=== PATIENT | male | born 1945 | race African-American/Black ===

== ENCOUNTER 2022-01-29 13:19 | Inpatient (IN) | payer MEDICARE, BC ==
[~2022-01-29] VITALS: Ht 185.4 cm; Wt 89.8 kg
[~2022-01-29 13:19] MED LIST: ALBU6.7H9 INH; COR12 PO; DOCU100T PO; FINA5TAB11 PO; GABA800T97 PO; INSU100C6 SQ; INSU100I28 SQ; LIDO35.421 TP; NORT25CA PO; PANT40TA51 PO; PSYL575P22 MT; ROSU20TA2 PO; SENN-257 PO; SPIR25TA6 PO; TAMS-11 PO; TORS20TA4 PO
[2022-01-29] MEDS ORDERED: VANCOMYCIN 1G PREMIX 200 ML IV ONE ×2 (14:00→15:30)
[2022-01-29] MEDS ORDERED: SODIUM CHLORIDE 0.9% 1000ML BAG (SEPSIS BOLUS) IV ONE (14:00)
[2022-01-29] MEDS ORDERED: PIPERACILLIN/TAZ 3.375G PREMIX 50 ML IV ONE (14:00)
[2022-01-29 14:18] LABS: HEMATOCRIT. 29.2 % (42.0-52.0); HEMOGLOBIN. 9.4 g/dL (14.0-18.0); MEAN CORPUSCULAR VOLUME 89.9 fL (80.0-94.0); MEAN PLATELET VOLUME 7.9 fl (7.4-10.4); PLATELET 313 x1000/uL (130-400); RED BLOOD CELL COUNT 3.24 mill/uL (4.7-6.1); RED CELL DISTRIBUTION WIDTH 17.1 % (11.6-14.6)
[2022-01-29 14:25] LABS: INR 1.3
[2022-01-29] MEDS ORDERED: ACETAMINOPHEN 650MG SUPP PR PRN (14:45)
[2022-01-29] MEDS: DEXT 5%/0.45% NACL 1000ML 1,000 ML IV SCH (14:45)
[2022-01-29] MEDS ORDERED: PIPERACILLIN/TAZOBACTAM 3.375 G in DEXTROSE 5% WATER 50 ML IV SCH (14:45)
[2022-01-29] MEDS ORDERED: NALOXONE HCL 0.4MG/ML VIAL IV PRN (15:00)
[2022-01-29] MEDS ORDERED: VANCOMYCIN 1G PREMIX 200 ML IV NR (15:30)
[2022-01-29] MEDS ORDERED: PIPERACILLIN/TAZ 3.375G PREMIX 50 ML IV NR (15:30)
[2022-01-29 16:19] LABS: CHLORIDE 103 mEq/L (98-107)
[2022-01-29 16:49] LABS: PLATELET ESTIMATE NORMAL
[2022-01-29] MEDS ORDERED: VANCOMYCIN 1500MG in DEXTROSE 5% WATER 250ML IV NR (17:30)
[2022-01-29] MEDS ORDERED: VANCOMYCIN 1.25GM PMX (XELLIA) 250 ML IV NR (17:30)
[2022-01-29] MEDS: ONDANSETRON HCL 4MG/2ML INJ IV PRN (21:46)
[2022-01-29] MEDS: MORPHINE SULFATE 2 MG/ML CPJ (NOT FOR IM USE) IV PRN (21:46)
[2022-01-29] MEDS: PIPERACILLIN/TAZOBACTAM 3.375G in DEXT 5% WATER 50ML IV SCH (22:00)
[2022-01-30] VITALS (9 sets, daily range): BP systolic 107–139; BP diastolic 48–63
[2022-01-30] MEDS: DEXT 5%/0.45% NACL 1000ML 1,000 ML IV SCH ×3 (06:00→23:49)
[2022-01-30] MEDS ORDERED: DEXTROSE 50% WATER 50ML SYRINGE IV PRN (07:45)
[2022-01-30] MEDS: INSULIN LISPRO (MEDIUM DOSE) 100 UNITS/ML SUBCUT SCH ×3 (12:00→23:52)
[2022-01-30] MEDS ORDERED: INSULIN LISPRO 100 UNITS/ML SUBCUT SCH (12:00)
[2022-01-30] MEDS: BLOOD SUGAR DIAGNOSTIC STRIP TEST SCH ×3 (12:00→23:49)
[2022-01-30 12:45] LABS: CHLORIDE 100 mEq/L (98-107)
[2022-01-30 12:47] LABS: HEMATOCRIT. 27.9 % (42.0-52.0); HEMOGLOBIN. 8.8 g/dL (14.0-18.0); MEAN CORPUSCULAR HEMOGLOBIN 28.8 pg (28.0-32.0); MEAN CORPUSCULAR VOLUME 91.3 fL (80.0-94.0); MEAN PLATELET VOLUME 8.2 fl (7.4-10.4); PLATELET 286 x1000/uL (130-400); RED BLOOD CELL COUNT 3.06 mill/uL (4.7-6.1); RED CELL DISTRIBUTION WIDTH 17.9 % (11.6-14.6)
[2022-01-30] MEDS: PIPERACILLIN/TAZOBACTAM 3.375G in DEXT 5% WATER 50ML IV SCH ×2 (15:00→23:20)
[2022-01-30 20:34] LABS: PLATELET ESTIMATE NORMAL
[2022-01-30] MEDS ORDERED: VANCOMYCIN 750MG PREMIX 150 ML IV NR (21:00)
[2022-01-31] VITALS (12 sets, daily range): BP systolic 97–152; BP diastolic 38–91
[2022-01-31] MEDS: PIPERACILLIN/TAZOBACTAM 3.375G in DEXT 5% WATER 50ML IV SCH ×3 (05:50→21:54)
[2022-01-31] MEDS: BLOOD SUGAR DIAGNOSTIC STRIP TEST SCH ×3 (05:51→18:21)
[2022-01-31] MEDS: INSULIN LISPRO (MEDIUM DOSE) 100 UNITS/ML SUBCUT SCH ×3 (05:59→18:30)
[2022-01-31 06:25] LABS: HEMATOCRIT. 29.6 % (42.0-52.0); HEMOGLOBIN. 9.4 g/dL (14.0-18.0); MEAN CORPUSCULAR HEMOGLOBIN 29.2 pg (28.0-32.0); MEAN CORPUSCULAR VOLUME 92.6 fL (80.0-94.0); MEAN PLATELET VOLUME 8.4 fl (7.4-10.4); PLATELET 174 x1000/uL (130-400); RED CELL DISTRIBUTION WIDTH 17.7 % (11.6-14.6)
[2022-01-31 06:45] LABS: CHLORIDE 104 mEq/L (98-107)
[2022-01-31] MEDS ORDERED: SODIUM BICARBONATE 8.4% 1 MEQ/ML 50ML SYR IV NR (10:30)
[2022-01-31 11:17] LABS: PLATELET ESTIMATE NORMAL
[2022-01-31] MEDS ORDERED: SODIUM BICARBONATE 150 MEQ in DEXTROSE 5% WATER 1,000 ML IV SCH (12:00)
[2022-01-31 12:55] LABS: CLARITY URINE CLOUDY (CLEAR); COLOR URINE DARK YELLOW (YELLOW); KETONES URINE TRACE (NEGATIVE); LEUKOCYTE ESTERASE URINE 1+ (NEGATIVE); NITRITE URINE NEGATIVE (NEGATIVE); OCCULT BLOOD URINE NEGATIVE (NEGATIVE); PH URINE 5.5 (4.5-8.0); PROTEIN URINE 2+ (NEGATIVE); SPECIFIC GRAVITY URINE 1.015 (1.005-1.030); UROBILINOGEN URINE 0.2 E.U./dL (0.2-1.0)
[2022-01-31] MEDS: MORPHINE SULFATE 2 MG/ML CPJ (NOT FOR IM USE) IV PRN (18:43)
[2022-02-01] VITALS (12 sets, daily range): BP systolic 106–147; BP diastolic 44–88
[2022-02-01] MEDS: INSULIN LISPRO (MEDIUM DOSE) 100 UNITS/ML SUBCUT SCH ×5 (00:52→17:30)
[2022-02-01] MEDS: BLOOD SUGAR DIAGNOSTIC STRIP TEST SCH ×4 (00:52→16:35)
[2022-02-01 05:30] LABS: CHLORIDE 101 mEq/L (98-107)
[2022-02-01 05:33] LABS: HEMATOCRIT. 27.3 % (42.0-52.0); HEMOGLOBIN. 8.8 g/dL (14.0-18.0); MEAN CORPUSCULAR HEMOGLOBIN 28.5 pg (28.0-32.0); MEAN CORPUSCULAR VOLUME 88.8 fL (80.0-94.0); MEAN PLATELET VOLUME 8.5 fl (7.4-10.4); PLATELET 253 x1000/uL (130-400); RED BLOOD CELL COUNT 3.08 mill/uL (4.7-6.1); RED CELL DISTRIBUTION WIDTH 17.1 % (11.6-14.6)
[2022-02-01] MEDS: PIPERACILLIN/TAZOBACTAM 3.375G in DEXT 5% WATER 50ML IV SCH ×3 (06:09→21:59)
[2022-02-01] MEDS: MORPHINE SULFATE 2 MG/ML CPJ (NOT FOR IM USE) IV PRN (06:39)
[2022-02-01] MEDS: DOCUSATE SODIUM SUGAR FREE 100MG/10ML UDC NG SCH (08:27)
[2022-02-01] MEDS: SODIUM BICARBONATE 150 MEQ in DEXTROSE 5% WATER 1,000 ML IV SCH (08:27)
[2022-02-01 17:00] LABS: PLATELET ESTIMATE NORMAL
[2022-02-01 20:26] LABS: TOTAL IRON BINDING CAPACITY 103 ug/dL (250-450)
[2022-02-01 20:51] LABS: CARCINO EMBRYONIC ANTIGEN 19.4 ng/ml
[2022-02-01 21:11] LABS: FERRITIN 1349 ng/mL (22-322)
[2022-02-01 21:18] LABS: VITAMIN B12 SERUM > 2000.0 pg/mL (211-911)
[2022-02-01] MEDS: PANTOPRAZOLE SODIUM 40 MG/VIAL IV SCH (21:58)
[2022-02-02] VITALS (12 sets, daily range): BP systolic 128–158; BP diastolic 61–84
[2022-02-02] MEDS: INSULIN LISPRO (MEDIUM DOSE) 100 UNITS/ML SUBCUT SCH ×5 (00:30→23:45)
[2022-02-02] MEDS: SODIUM BICARBONATE 150 MEQ in DEXTROSE 5% WATER 1,000 ML IV SCH (00:31)
[2022-02-02] MEDS: BLOOD SUGAR DIAGNOSTIC STRIP TEST SCH ×5 (06:00→23:45)
[2022-02-02] MEDS: PIPERACILLIN/TAZOBACTAM 3.375G in DEXT 5% WATER 50ML IV SCH ×2 (06:02→14:10)
[2022-02-02 06:38] LABS: HEMATOCRIT. 28.4 % (42.0-52.0); HEMOGLOBIN. 9.2 g/dL (14.0-18.0); MEAN CORPUSCULAR HEMOGLOBIN 28.7 pg (28.0-32.0); MEAN CORPUSCULAR VOLUME 88.9 fL (80.0-94.0); MEAN PLATELET VOLUME 8.7 fl (7.4-10.4); PLATELET 242 x1000/uL (130-400); RED BLOOD CELL COUNT 3.19 mill/uL (4.7-6.1); RED CELL DISTRIBUTION WIDTH 16.9 % (11.6-14.6)
[2022-02-02] MEDS: DOCUSATE SODIUM SUGAR FREE 100MG/10ML UDC NG SCH (08:04)
[2022-02-02] MEDS: PANTOPRAZOLE SODIUM 40 MG/VIAL IV SCH (08:04)
[2022-02-02] MEDS: DEXT 5%/0.45% NACL 1000ML 1,000 ML IV SCH ×2 (09:55→21:45)
[2022-02-02 18:16] LABS: INR 1.3; PROTHROMBIN TIME 13.3 sec (9.6-11.0)
[2022-02-02] MEDS: PIPERACILLIN/TAZOBACTAM 3.375 G in DEXTROSE 5% WATER 50 ML IV SCH (21:45)
[2022-02-03] VITALS (11 sets, daily range): BP systolic 126–162; BP diastolic 62–80
[2022-02-03] MEDS: MORPHINE SULFATE 2 MG/ML CPJ (NOT FOR IM USE) IV PRN (00:39)
[2022-02-03 03:35] LABS: INR 1.3; PROTHROMBIN TIME 13.4 sec (9.6-11.0)
[2022-02-03 03:43] LABS: HEMATOCRIT. 26.4 % (42.0-52.0); HEMOGLOBIN. 8.6 g/dL (14.0-18.0); MEAN CORPUSCULAR HEMOGLOBIN 28.6 pg (28.0-32.0); MEAN CORPUSCULAR VOLUME 88.3 fL (80.0-94.0); MEAN PLATELET VOLUME 8.6 fl (7.4-10.4); PLATELET 214 x1000/uL (130-400); RED BLOOD CELL COUNT 2.99 mill/uL (4.7-6.1); RED CELL DISTRIBUTION WIDTH 17.2 % (11.6-14.6)
[2022-02-03] MEDS: INSULIN LISPRO (MEDIUM DOSE) 100 UNITS/ML SUBCUT SCH ×4 (05:45→22:41)
[2022-02-03] MEDS: BLOOD SUGAR DIAGNOSTIC STRIP TEST SCH ×4 (05:45→22:32)
[2022-02-03] MEDS: DOCUSATE SODIUM SUGAR FREE 100MG/10ML UDC NG SCH (07:12)
[2022-02-03] MEDS: PIPERACILLIN/TAZOBACTAM 3.375 G in DEXTROSE 5% WATER 50 ML IV SCH ×2 (08:17→22:26)
[2022-02-03] MEDS: PANTOPRAZOLE SODIUM 40 MG/VIAL IV SCH (08:17)
[2022-02-03] MEDS ORDERED: POTASSIUM CHLORIDE INJ 40 MEQ in DEXT 5% WATER 250 ML IV ONE (09:30)
[2022-02-03] MEDS: KCL 20MEQ/100ML X 2 FOR TOTAL KCL 40MEQ/200ML IV SCH ×2 (09:48→11:47)
[2022-02-03 10:41] LABS: PLATELET ESTIMATE NORMAL
[2022-02-03] MEDS: DEXT 5%/0.45% NACL 1000ML 1,000 ML IV SCH (11:58)
[2022-02-03] MEDS ORDERED: LIDOCAINE HCL/PF 1% 10 MG/ML 5ML VIAL ONE ×3 (12:57→16:20)
[2022-02-03] MEDS ORDERED: HEPARIN 1000 UNITS/ML 10ML ONE (13:25)
[2022-02-03] MEDS ORDERED: IOHEXOL-300 50 ML BOTTLE IV ONE (14:52)
[2022-02-03] MEDS ORDERED: MIDAZOLAM HCL 2 MG/2 ML VIAL ONE (15:32)
[2022-02-03] MEDS ORDERED: PHENYLEPHRINE HCL 10 MG/ML 1ML (IV VIAL) IV ONE (16:09)
[2022-02-03 16:19] LABS: PLATELET ESTIMATE NORMAL
[2022-02-03] MEDS ORDERED: HYDROMORPHONE HCL/PF 2MG/ML CPJ IV PRN (16:30)
[2022-02-03] MEDS ORDERED: MEPERIDINE HCL/PF 25MG/ML CPJ IV PRN (16:30)
[2022-02-03] MEDS ORDERED: LABETALOL 5MG/ML SYR 20 MG/4 ML SYRINGE IV PRN (16:30)
[2022-02-03] MEDS ORDERED: ONDANSETRON HCL 4MG/2ML INJ IV PRN (16:30)
[2022-02-03 16:31] LABS: HEMATOCRIT 23.6 % (42.0-52.0); MEAN CORPUSCULAR HEMOGLOBIN 29.4 pg (28.0-32.0); MEAN CORPUSCULAR VOLUME 87.2 fL (80.0-94.0); PLATELET 202 x1000/uL (130-400); RED BLOOD CELL COUNT 2.71 mill/uL (4.7-6.1); RED CELL DISTRIBUTION WIDTH 16.7 % (11.6-14.6)
[2022-02-03 21:51] LABS: HEPATITIS B SURFACE ANTIGEN NEGATIVE
[2022-02-04] VITALS (10 sets, daily range): BP systolic 109–148; BP diastolic 54–84
[2022-02-04] MEDS: DEXT 5%/0.45% NACL 1000ML 1,000 ML IV SCH ×2 (01:00→14:20)
[2022-02-04] MEDS: PANTOPRAZOLE SODIUM 40 MG/VIAL IV SCH (09:00)
[2022-02-04] MEDS: PIPERACILLIN/TAZOBACTAM 3.375 G in DEXTROSE 5% WATER 50 ML IV SCH ×2 (09:00→22:15)
[2022-02-04] MEDS: DOCUSATE SODIUM SUGAR FREE 100MG/10ML UDC NG SCH (09:00)
[2022-02-04] MEDS: BLOOD SUGAR DIAGNOSTIC STRIP TEST SCH ×2 (12:03→18:06)
[2022-02-04 12:07] LABS: HEMATOCRIT. 24.6 % (42.0-52.0); HEMOGLOBIN. 8.2 g/dL (14.0-18.0); MEAN CORPUSCULAR HEMOGLOBIN 29.8 pg (28.0-32.0); MEAN CORPUSCULAR VOLUME 89.6 fL (80.0-94.0); MEAN PLATELET VOLUME 8.8 fl (7.4-10.4); PLATELET 195 x1000/uL (130-400); RED BLOOD CELL COUNT 2.74 mill/uL (4.7-6.1); RED CELL DISTRIBUTION WIDTH 17.2 % (11.6-14.6)
[2022-02-04] MEDS: INSULIN LISPRO (MEDIUM DOSE) 100 UNITS/ML SUBCUT SCH ×2 (12:13→18:20)
[2022-02-04 17:41] LABS: PLATELET ESTIMATE NORMAL
[2022-02-05] VITALS (12 sets, daily range): BP systolic 128–154; BP diastolic 54–79
[2022-02-05] MEDS: INSULIN LISPRO (MEDIUM DOSE) 100 UNITS/ML SUBCUT SCH ×4 (00:24→18:28)
[2022-02-05] MEDS: BLOOD SUGAR DIAGNOSTIC STRIP TEST SCH ×4 (00:30→18:23)
[2022-02-05 07:00] LABS: HEMATOCRIT. 22.4 % (42.0-52.0); HEMOGLOBIN. 7.5 g/dL (14.0-18.0); MEAN CORPUSCULAR HEMOGLOBIN 29.7 pg (28.0-32.0); MEAN CORPUSCULAR VOLUME 89.3 fL (80.0-94.0); MEAN PLATELET VOLUME 8.9 fl (7.4-10.4); PLATELET 189 x1000/uL (130-400); RED BLOOD CELL COUNT 2.51 mill/uL (4.7-6.1); RED CELL DISTRIBUTION WIDTH 17.1 % (11.6-14.6)
[2022-02-05] MEDS: PIPERACILLIN/TAZOBACTAM 3.375 G in DEXTROSE 5% WATER 50 ML IV SCH ×2 (08:23→21:31)
[2022-02-05] MEDS: DOCUSATE SODIUM SUGAR FREE 100MG/10ML UDC NG SCH (08:23)
[2022-02-05] MEDS: PANTOPRAZOLE SODIUM 40 MG/VIAL IV SCH (08:23)
[2022-02-05] MEDS: EPOETIN ALFA-EPBX 10,000 UNIT/ML VIAL SUBCUT SCH (21:31)
[2022-02-05] MEDS: ONDANSETRON HCL 4MG/2ML INJ IV PRN (23:18)
[2022-02-06] VITALS (12 sets, daily range): BP systolic 112–166; BP diastolic 50–80
[2022-02-06] MEDS: BLOOD SUGAR DIAGNOSTIC STRIP TEST SCH ×4 (00:15→18:27)
[2022-02-06] MEDS: INSULIN LISPRO (MEDIUM DOSE) 100 UNITS/ML SUBCUT SCH ×4 (00:27→18:26)
[2022-02-06 06:46] LABS: HEMATOCRIT. 24.7 % (42.0-52.0); HEMOGLOBIN. 8.2 g/dL (14.0-18.0); MEAN CORPUSCULAR HEMOGLOBIN 29.7 pg (28.0-32.0); MEAN CORPUSCULAR VOLUME 89.4 fL (80.0-94.0); PLATELET 208 x1000/uL (130-400); RED BLOOD CELL COUNT 2.76 mill/uL (4.7-6.1); RED CELL DISTRIBUTION WIDTH 17.2 % (11.6-14.6)
[2022-02-06] MEDS: PIPERACILLIN/TAZOBACTAM 3.375 G in DEXTROSE 5% WATER 50 ML IV SCH ×2 (08:43→21:35)
[2022-02-06] MEDS: DOCUSATE SODIUM SUGAR FREE 100MG/10ML UDC NG SCH (08:43)
[2022-02-06] MEDS: PANTOPRAZOLE SODIUM 40 MG/VIAL IV SCH (08:43)
[2022-02-06] MEDS ORDERED: POTASSIUM CHLORIDE 20MEQ/PACKET PO NR (10:30)
[2022-02-06 13:22] LABS: PLATELET ESTIMATE NORMAL
[2022-02-06 20:44] LABS: PLATELET ESTIMATE NORMAL
[2022-02-07] VITALS (14 sets, daily range): BP systolic 119–148; BP diastolic 38–75
[2022-02-07] MEDS: BLOOD SUGAR DIAGNOSTIC STRIP TEST SCH ×5 (00:49→23:40)
[2022-02-07] MEDS: INSULIN LISPRO (MEDIUM DOSE) 100 UNITS/ML SUBCUT SCH ×5 (00:52→23:50)
[2022-02-07] MEDS: PANTOPRAZOLE SODIUM 40 MG/VIAL IV SCH (08:28)
[2022-02-07] MEDS: DOCUSATE SODIUM SUGAR FREE 100MG/10ML UDC NG SCH (08:28)
[2022-02-07] MEDS: PIPERACILLIN/TAZOBACTAM 3.375 G in DEXTROSE 5% WATER 50 ML IV SCH ×2 (08:29→20:19)
[2022-02-07 13:20] LABS: HEMATOCRIT. 23.8 % (42.0-52.0); HEMOGLOBIN. 7.8 g/dL (14.0-18.0); MEAN CORPUSCULAR HEMOGLOBIN 29.7 pg (28.0-32.0); MEAN CORPUSCULAR VOLUME 90.4 fL (80.0-94.0); MEAN PLATELET VOLUME 9.1 fl (7.4-10.4); PLATELET 195 x1000/uL (130-400); RED BLOOD CELL COUNT 2.63 mill/uL (4.7-6.1); RED CELL DISTRIBUTION WIDTH 18.1 % (11.6-14.6)
[2022-02-07] MEDS ORDERED: POTASSIUM CHLORIDE 20MEQ/PACKET PO SCH (14:00)
[2022-02-07] MEDS: ACETAMINOPHEN 650MG/20.3ML UDC NG PRN (15:26)
[2022-02-08] VITALS (17 sets, daily range): BP systolic 112–161; BP diastolic 36–78
[2022-02-08] MEDS: BLOOD SUGAR DIAGNOSTIC STRIP TEST SCH ×3 (05:10→18:03)
[2022-02-08] MEDS: INSULIN LISPRO (MEDIUM DOSE) 100 UNITS/ML SUBCUT SCH ×3 (05:16→18:03)
[2022-02-08 07:24] LABS: HEMATOCRIT. 21.5 % (42.0-52.0); MEAN CORPUSCULAR HEMOGLOBIN 29.5 pg (28.0-32.0); MEAN CORPUSCULAR VOLUME 91.1 fL (80.0-94.0); MEAN PLATELET VOLUME 9.3 fl (7.4-10.4); PLATELET 203 x1000/uL (130-400); RED BLOOD CELL COUNT 2.36 mill/uL (4.7-6.1); RED CELL DISTRIBUTION WIDTH 18.1 % (11.6-14.6)
[2022-02-08 14:10] LABS: PLATELET ESTIMATE NORMAL
[2022-02-08] MEDS: PANTOPRAZOLE SODIUM 40 MG/VIAL IV SCH (14:20)
[2022-02-08] MEDS: DOCUSATE SODIUM SUGAR FREE 100MG/10ML UDC NG SCH (14:20)
[2022-02-08] MEDS: ACETAMINOPHEN 650MG/20.3ML UDC NG PRN (14:28)
[2022-02-08] MEDS ORDERED: POTASSIUM CHLORIDE 20MEQ TABLET SR PO NR (15:15)
[2022-02-08] MEDS ORDERED: AMOXICILLIN/POTASSIUM CLAVULANATE 875/125MG TAB PO SCH (21:00)
[2022-02-08] MEDS: AMOXICILLIN/POTASSIUM CLAVULANATE 500/125MG TAB PO SCH (21:36)
[2022-02-08] MEDS: EPOETIN ALFA-EPBX 10,000 UNIT/ML VIAL SUBCUT SCH (21:36)
[2022-02-09] VITALS (12 sets, daily range): BP systolic 134–161; BP diastolic 63–89
[2022-02-09] MEDS: INSULIN LISPRO (MEDIUM DOSE) 100 UNITS/ML SUBCUT SCH (00:13)
[2022-02-09 06:44] LABS: BASOPHILS % 0.3 % (0.0-2.0); EOSINOPHILS % 1.4 % (0.0-5.0); HEMATOCRIT. 27.6 % (42.0-52.0); HEMOGLOBIN. 9.2 g/dL (14.0-18.0); LYMPHOCYTES % 16.2 % (20.0-50.0); MEAN CORPUSCULAR HEMOGLOBIN 30.4 pg (28.0-32.0); MEAN PLATELET VOLUME 9.1 fl (7.4-10.4); MONOCYTES % 7.8 % (2.0-8.0); NEUTROPHILS % 74.3 % (40.0-76.0); PLATELET 199 x1000/uL (130-400); RED BLOOD CELL COUNT 3.03 mill/uL (4.7-6.1); RED CELL DISTRIBUTION WIDTH 17.5 % (11.6-14.6)
[2022-02-09] MEDS: BLOOD SUGAR DIAGNOSTIC STRIP TEST SCH ×5 (08:25→21:00)
[2022-02-09] MEDS ORDERED: POTASSIUM CHLORIDE 20MEQ TABLET SR PO NR (08:45)
[2022-02-09] MEDS: PANTOPRAZOLE SODIUM 40 MG/VIAL IV SCH (08:46)
[2022-02-09] MEDS: AMOXICILLIN/POTASSIUM CLAVULANATE 500/125MG TAB PO SCH ×2 (08:46→21:46)
[2022-02-09] MEDS: DOCUSATE SODIUM SUGAR FREE 100MG/10ML UDC NG SCH (08:46)
[2022-02-09] MEDS: INSULIN LISPRO 100 UNITS/ML SUBCUT SCH ×4 (08:47→21:48)
[2022-02-09] MEDS ORDERED: POTASSIUM CHLORIDE 20MEQ TABLET SR PO ONE (09:00)
[2022-02-09] MEDS: MORPHINE SULFATE 2 MG/ML CPJ (NOT FOR IM USE) IV PRN ×2 (10:42→18:25)
[2022-02-09 14:29] LABS: PLATELET ESTIMATE NORMAL
[2022-02-10] VITALS (13 sets, daily range): BP systolic 138–164; BP diastolic 66–78
[2022-02-10 06:38] LABS: BASOPHILS % 0.6 % (0.0-2.0); EOSINOPHILS % 2.2 % (0.0-5.0); HEMATOCRIT. 28.2 % (42.0-52.0); HEMOGLOBIN. 9.2 g/dL (14.0-18.0); LYMPHOCYTES % 18.5 % (20.0-50.0); MEAN CORPUSCULAR HEMOGLOBIN 30.2 pg (28.0-32.0); MEAN CORPUSCULAR VOLUME 92.7 fL (80.0-94.0); MEAN PLATELET VOLUME 9.2 fl (7.4-10.4); MONOCYTES % 7.1 % (2.0-8.0); NEUTROPHILS % 71.6 % (40.0-76.0); PLATELET 229 x1000/uL (130-400); RED BLOOD CELL COUNT 3.04 mill/uL (4.7-6.1); RED CELL DISTRIBUTION WIDTH 18.7 % (11.6-14.6)
[2022-02-10] MEDS: DOCUSATE SODIUM SUGAR FREE 100MG/10ML UDC NG SCH (08:28)
[2022-02-10] MEDS: INSULIN LISPRO 100 UNITS/ML SUBCUT SCH ×4 (08:28→20:59)
[2022-02-10] MEDS: BLOOD SUGAR DIAGNOSTIC STRIP TEST SCH ×4 (08:28→20:56)
[2022-02-10] MEDS: PANTOPRAZOLE SODIUM 40 MG/VIAL IV SCH (08:28)
[2022-02-10] MEDS: AMOXICILLIN/POTASSIUM CLAVULANATE 500/125MG TAB PO SCH ×2 (08:28→20:56)
[2022-02-10] MEDS: MORPHINE SULFATE 2 MG/ML CPJ (NOT FOR IM USE) IV PRN (18:08)
[2022-02-10] MEDS: EPOETIN ALFA-EPBX 10,000 UNIT/ML VIAL SUBCUT SCH (20:56)
[2022-02-10] MEDS: CLONIDINE 0.1MG TABLET PO PRN (21:01)
[2022-02-11] VITALS (12 sets, daily range): BP systolic 150–167; BP diastolic 61–89
[2022-02-11] MEDS: BLOOD SUGAR DIAGNOSTIC STRIP TEST SCH ×4 (07:36→20:56)
[2022-02-11] MEDS: PANTOPRAZOLE SODIUM 40 MG/VIAL IV SCH (08:20)
[2022-02-11] MEDS: INSULIN LISPRO 100 UNITS/ML SUBCUT SCH ×4 (08:20→21:00)
[2022-02-11] MEDS: DOCUSATE SODIUM SUGAR FREE 100MG/10ML UDC NG SCH (08:21)
[2022-02-11] MEDS: AMOXICILLIN/POTASSIUM CLAVULANATE 500/125MG TAB PO SCH ×2 (08:21→20:57)
[2022-02-11] MEDS: MORPHINE SULFATE 2 MG/ML CPJ (NOT FOR IM USE) IV PRN (14:54)
[2022-02-11] MEDS: CLONIDINE 0.1MG TABLET PO PRN (21:01)
[2022-02-11 21:59] LABS: BASOPHILS % 0.7 % (0.0-2.0); EOSINOPHILS % 1.4 % (0.0-5.0); HEMATOCRIT. 26.6 % (42.0-52.0); HEMOGLOBIN. 8.7 g/dL (14.0-18.0); LYMPHOCYTES % 21.9 % (20.0-50.0); MEAN CORPUSCULAR VOLUME 92.2 fL (80.0-94.0); MEAN PLATELET VOLUME 8.8 fl (7.4-10.4); MONOCYTES % 5.8 % (2.0-8.0); NEUTROPHILS % 70.2 % (40.0-76.0); PLATELET 252 x1000/uL (130-400); RED BLOOD CELL COUNT 2.88 mill/uL (4.7-6.1); RED CELL DISTRIBUTION WIDTH 18.7 % (11.6-14.6)
[2022-02-12] VITALS (13 sets, daily range): BP systolic 135–174; BP diastolic 61–80
[2022-02-12] MEDS: INSULIN LISPRO 100 UNITS/ML SUBCUT SCH ×4 (07:30→20:27)
[2022-02-12] MEDS: BLOOD SUGAR DIAGNOSTIC STRIP TEST SCH ×4 (07:54→20:28)
[2022-02-12] MEDS ORDERED: DIATR MEGLU/DIATRIZOATE SOLN 30ML PO NR (08:15)
[2022-02-12] MEDS: AMOXICILLIN/POTASSIUM CLAVULANATE 500/125MG TAB PO SCH ×2 (08:20→20:27)
[2022-02-12] MEDS: PANTOPRAZOLE SODIUM 40 MG/VIAL IV SCH (08:20)
[2022-02-12] MEDS: DOCUSATE SODIUM SUGAR FREE 100MG/10ML UDC NG SCH (08:20)
[2022-02-12] MEDS: CLONIDINE 0.1MG TABLET PO PRN ×2 (08:27→20:29)
[2022-02-12 10:56] LABS: BASOPHILS % 0.7 % (0.0-2.0); EOSINOPHILS % 1.5 % (0.0-5.0); HEMATOCRIT. 27.9 % (42.0-52.0); HEMOGLOBIN. 8.9 g/dL (14.0-18.0); LYMPHOCYTES % 20.1 % (20.0-50.0); MEAN CORPUSCULAR VOLUME 93.5 fL (80.0-94.0); MONOCYTES % 5.6 % (2.0-8.0); NEUTROPHILS % 72.1 % (40.0-76.0); PLATELET 263 x1000/uL (130-400); RED BLOOD CELL COUNT 2.98 mill/uL (4.7-6.1); RED CELL DISTRIBUTION WIDTH 19.2 % (11.6-14.6)
[2022-02-13] VITALS (12 sets, daily range): BP systolic 140–170; BP diastolic 50–87
[2022-02-13] MEDS: CLONIDINE 0.1MG TABLET PO PRN (04:15)
[2022-02-13] MEDS: BLOOD SUGAR DIAGNOSTIC STRIP TEST SCH ×4 (07:52→21:00)
[2022-02-13] MEDS: INSULIN LISPRO 100 UNITS/ML SUBCUT SCH ×4 (08:45→21:24)
[2022-02-13] MEDS: DOCUSATE SODIUM SUGAR FREE 100MG/10ML UDC NG SCH (08:46)
[2022-02-13] MEDS: AMOXICILLIN/POTASSIUM CLAVULANATE 500/125MG TAB PO SCH ×2 (08:46→21:23)
[2022-02-13] MEDS: PANTOPRAZOLE SODIUM 40 MG/VIAL IV SCH (08:46)
[2022-02-13 09:55] LABS: BASOPHILS % 0.9 % (0.0-2.0); EOSINOPHILS % 1.6 % (0.0-5.0); HEMATOCRIT. 28.2 % (42.0-52.0); HEMOGLOBIN. 9.1 g/dL (14.0-18.0); MEAN CORPUSCULAR HEMOGLOBIN 30.1 pg (28.0-32.0); MEAN CORPUSCULAR VOLUME 93.6 fL (80.0-94.0); MEAN PLATELET VOLUME 8.8 fl (7.4-10.4); MONOCYTES % 5.7 % (2.0-8.0); NEUTROPHILS % 73.8 % (40.0-76.0); PLATELET 276 x1000/uL (130-400); RED BLOOD CELL COUNT 3.01 mill/uL (4.7-6.1); RED CELL DISTRIBUTION WIDTH 19.1 % (11.6-14.6)
[2022-02-13] MEDS ORDERED: POTASSIUM CHLORIDE 20MEQ/PACKET PO NR (10:30)
[2022-02-14] VITALS (12 sets, daily range): BP systolic 142–174; BP diastolic 67–86
[2022-02-14] MEDS: BLOOD SUGAR DIAGNOSTIC STRIP TEST SCH ×4 (08:07→21:38)
[2022-02-14] MEDS: INSULIN LISPRO 100 UNITS/ML SUBCUT SCH ×4 (08:22→21:38)
[2022-02-14] MEDS: DOCUSATE SODIUM SUGAR FREE 100MG/10ML UDC NG SCH (08:23)
[2022-02-14] MEDS: PANTOPRAZOLE SODIUM 40 MG/VIAL IV SCH (08:23)
[2022-02-14] MEDS ORDERED: NALOXONE HCL 0.4MG/ML VIAL IV PRN (15:45)
[2022-02-14] MEDS: MORPHINE SULFATE 2 MG/ML CPJ (NOT FOR IM USE) IV PRN (17:04)
[2022-02-14] MEDS: AMOXICILLIN/POTASSIUM CLAVULANATE 500/125MG TAB PO SCH (21:37)
[2022-02-14] MEDS: CLONIDINE 0.1MG TABLET PO PRN (21:38)
[2022-02-15] VITALS (12 sets, daily range): BP systolic 146–181; BP diastolic 67–91
[2022-02-15] MEDS: CLONIDINE 0.1MG TABLET PO PRN ×3 (05:19→21:28)
[2022-02-15] MEDS: MORPHINE SULFATE 2 MG/ML CPJ (NOT FOR IM USE) IV PRN ×2 (05:21→15:02)
[2022-02-15 06:31] LABS: HEMATOCRIT. 27.7 % (42.0-52.0); MEAN CORPUSCULAR HEMOGLOBIN 30.5 pg (28.0-32.0); MEAN CORPUSCULAR VOLUME 93.7 fL (80.0-94.0); MEAN PLATELET VOLUME 8.5 fl (7.4-10.4); PLATELET 278 x1000/uL (130-400); RED BLOOD CELL COUNT 2.95 mill/uL (4.7-6.1); RED CELL DISTRIBUTION WIDTH 19.7 % (11.6-14.6)
[2022-02-15 06:48] LABS: PHOSPHORUS 4.9 mg/dL (2.5-4.9)
[2022-02-15] MEDS: BLOOD SUGAR DIAGNOSTIC STRIP TEST SCH ×4 (08:01→21:28)
[2022-02-15] MEDS: AMOXICILLIN/POTASSIUM CLAVULANATE 500/125MG TAB PO SCH ×2 (08:49→21:27)
[2022-02-15] MEDS: DOCUSATE SODIUM SUGAR FREE 100MG/10ML UDC NG SCH (08:49)
[2022-02-15] MEDS: PANTOPRAZOLE SODIUM 40 MG/VIAL IV SCH (08:50)
[2022-02-15] MEDS: INSULIN LISPRO 100 UNITS/ML SUBCUT SCH ×4 (08:53→21:28)
[2022-02-15] MEDS ORDERED: POTASSIUM CHLORIDE 20MEQ TABLET SR PO NR (09:00)
[2022-02-15] MEDS: AMLODIPINE 5MG TABLET PO SCH (09:37)
[2022-02-15] MEDS: TAMSULOSIN HCL 0.4MG SR CAPSULE PO SCH (09:38)
[2022-02-15 14:02] LABS: PLATELET ESTIMATE NORMAL
[2022-02-16] VITALS (7 sets, daily range): BP systolic 139–163; BP diastolic 63–82
[2022-02-16] MEDS: HYDRALAZINE 20MG/ML VIAL IV PRN ×2 (05:53→20:55)
[2022-02-16] MEDS: BLOOD SUGAR DIAGNOSTIC STRIP TEST SCH ×4 (07:30→20:56)
[2022-02-16] MEDS: DOCUSATE SODIUM SUGAR FREE 100MG/10ML UDC NG SCH (08:50)
[2022-02-16] MEDS: AMLODIPINE 5MG TABLET PO SCH (08:50)
[2022-02-16] MEDS: INSULIN LISPRO 100 UNITS/ML SUBCUT SCH ×4 (08:51→20:55)
[2022-02-16] MEDS: AMOXICILLIN/POTASSIUM CLAVULANATE 500/125MG TAB PO SCH ×2 (09:00→20:56)
[2022-02-16] MEDS: TAMSULOSIN HCL 0.4MG SR CAPSULE PO SCH (09:00)
[2022-02-16] MEDS: PANTOPRAZOLE SODIUM 40 MG/VIAL IV SCH (09:00)
[2022-02-17] VITALS: BP 153/69
[2022-02-17 02:00] VITALS: BP 174/88
[2022-02-17 04:00] VITALS: BP 149/67
[2022-02-17 05:48] VITALS: BP 156/81
[2022-02-17 07:56] VITALS: BP 164/76
[2022-02-17] MEDS: BLOOD SUGAR DIAGNOSTIC STRIP TEST SCH (08:00)
[2022-02-17] MEDS: DOCUSATE SODIUM SUGAR FREE 100MG/10ML UDC NG SCH (08:12)
[2022-02-17] MEDS: TAMSULOSIN HCL 0.4MG SR CAPSULE PO SCH (08:13)
[2022-02-17] MEDS: HYDRALAZINE 20MG/ML VIAL IV PRN (08:13)
[2022-02-17] MEDS: AMOXICILLIN/POTASSIUM CLAVULANATE 500/125MG TAB PO SCH (08:13)
[2022-02-17] MEDS: PANTOPRAZOLE SODIUM 40 MG/VIAL IV SCH (08:13)
[2022-02-17] MEDS: AMLODIPINE 5MG TABLET PO SCH (08:14)
[2022-02-17] MEDS: INSULIN LISPRO 100 UNITS/ML SUBCUT SCH (08:15)
[2022-02-17 09:44] VITALS: BP 149/66
== END 2022-02-17 10:25 | DRG 919 ==
LOC: ER 13:19 → EDBEDREQTM 16:09 → EDBEDREQ 16:09 → EDBEDREQSVC 16:09 → EDBEDREQ 16:10 → ENRESERV 01-30 01:19 → 5EST 01-30 04:34
PROVIDERS: ADMIT Internal Medicine Nephrology; ATTEND Internal Medicine Nephrology
PROC: 0F9930Z Drainage of Common Bile Duct with Drainage Device, Percutaneous Approach (ICD-10-PCS; principal; 2022-02-03)
PROC: BF10YZZ Fluoroscopy of Bile Ducts using Other Contrast (ICD-10-PCS; 2022-02-03)
PROC: 02HV33Z Insertion of Infusion Device into Superior Vena Cava, Percutaneous Approach (ICD-10-PCS; 2022-02-03)
PROC: B548ZZA Ultrasonography of Superior Vena Cava, Guidance (ICD-10-PCS; 2022-02-03)
PROC: 5A1D70Z Performance of Urinary Filtration, Intermittent, Less than 6 Hours Per Day (ICD-10-PCS; 2022-02-03)
PROC: 5A1D70Z Performance of Urinary Filtration, Intermittent, Less than 6 Hours Per Day (ICD-10-PCS; 2022-02-05)
PROC: 5A1D70Z Performance of Urinary Filtration, Intermittent, Less than 6 Hours Per Day (ICD-10-PCS; 2022-02-08)
PROC: 5A1D70Z Performance of Urinary Filtration, Intermittent, Less than 6 Hours Per Day (ICD-10-PCS; 2022-02-10)
DX: T85.868A Thrombosis due to other internal prosthetic devices, implants and grafts, initial encounter (principal); G92.8 Other toxic encephalopathy; K83.1 Obstruction of bile duct; I21.4 Non-ST elevation (NSTEMI) myocardial infarction; N17.0 Acute kidney failure with tubular necrosis; E87.2 Acidosis; I82.621 Acute embolism and thrombosis of deep veins of right upper extremity; C25.9 Malignant neoplasm of pancreas, unspecified; N18.30 Chronic kidney disease, stage 3 unspecified; E87.5 Hyperkalemia; I12.9 Hypertensive chronic kidney disease with stage 1 through stage 4 chronic kidney disease, or unspecified chronic kidney disease; E11.22 Type 2 diabetes mellitus with diabetic chronic kidney disease; D64.9 Anemia, unspecified; Z20.822 Contact with and (suspected) exposure to COVID-19; E78.00 Pure hypercholesterolemia, unspecified; Z66 Do not resuscitate; E11.51 Type 2 diabetes mellitus with diabetic peripheral angiopathy without gangrene; R19.05 Periumbilic swelling, mass or lump; N40.0 Benign prostatic hyperplasia without lower urinary tract symptoms; E80.6 Other disorders of bilirubin metabolism; R62.7 Adult failure to thrive; E87.6 Hypokalemia; G47.33 Obstructive sleep apnea (adult) (pediatric); I25.10 Atherosclerotic heart disease of native coronary artery without angina pectoris; D72.825 Bandemia; D49.0 Neoplasm of unspecified behavior of digestive system; R97.0 Elevated carcinoembryonic antigen [CEA]; Z86.73 Personal history of transient ischemic attack (TIA), and cerebral infarction without residual deficits; Z79.899 Other long term (current) drug therapy; Z90.49 Acquired absence of other specified parts of digestive tract; Z68.26 Body mass index [BMI] 26.0-26.9, adult; I25.2 Old myocardial infarction; Z74.01 Bed confinement status; Z82.49 Family history of ischemic heart disease and other diseases of the circulatory system; Z85.07 Personal history of malignant neoplasm of pancreas; Z98.84 Bariatric surgery status; Y84.8 Other medical procedures as the cause of abnormal reaction of the patient, or of later complication, without mention of misadventure at the time of the procedure; Y83.8 Other surgical procedures as the cause of abnormal reaction of the patient, or of later complication, without mention of misadventure at the time of the procedure; Y92.89 Other specified places as the place of occurrence of the external cause
CPT/HCPCS: 36415; 36556; 47534; 71045; 74176; 76700; 77001; 80048; 80053; 80076; 80202; 81003; 82105; 82140; 82248; 82270; 82378; 82607; 82728; 82746; 82962; 83540; 83550; 83605; 83735; 83880; 84100; 84145; 84443; 84484; 85025; 85027; 85044; 86301; 86705; 86706; 86709; 86803; 86850; 86900; 86920; 87340; 87426; 92610; 93005; 93306; 93970; 93971; 99291; A6261; C1725; C1752; C1760; C1766; C1769; C9113; C9803; J0360; J0885; J1644; J1815; J2250; J2270; J2370; J2405; J2543; J3370; J3480; J3490; J7030; J7060; J7070; P9016; Q9963; Q9967; U0003; U0005

== ENCOUNTER 2022-03-12 10:40 | Inpatient (IN) | payer MEDICARE, BC, MEDICAID ==
[~2022-03-12] VITALS: Ht 162.6 cm; Wt 73.0 kg
[2022-03-12 11:45] LABS: BASOPHILS % 0.4 % (0.0-2.0); HEMATOCRIT. 40.5 % (42.0-52.0); HEMOGLOBIN. 13.2 g/dL (14.0-18.0); LYMPHOCYTES % 15.5 % (20.0-50.0); MEAN CORPUSCULAR HEMOGLOBIN 29.5 pg (28.0-32.0); MEAN CORPUSCULAR VOLUME 90.5 fL (80.0-94.0); MEAN PLATELET VOLUME 9.4 fl (7.4-10.4); MONOCYTES % 4.5 % (2.0-8.0); NEUTROPHILS % 79.6 % (40.0-76.0); PLATELET 279 x1000/uL (130-400); RED BLOOD CELL COUNT 4.47 mill/uL (4.7-6.1); RED CELL DISTRIBUTION WIDTH 18.5 % (11.6-14.6)
[2022-03-12] MEDS ORDERED: SODIUM CHLORIDE 0.9% 1,000 ML IV ONE (11:45)
[2022-03-12] MEDS ORDERED: MORPHINE SULFATE 2 MG/ML CPJ (NOT FOR IM USE) IV ONE (11:45)
[2022-03-12 11:58] LABS: INR 1.1; PROTHROMBIN TIME 11.7 sec (9.6-11.0)
[2022-03-12 12:08] LABS: CHLORIDE 94 mEq/L (98-107)
[2022-03-12] MEDS ORDERED: CEFTRIAXONE 1 G PREMIX 50 ML IV NR (12:30)
[2022-03-12] MEDS ORDERED: ACETAMINOPHEN 325MG TABLET PO PRN (13:00)
[2022-03-12] MEDS ORDERED: SODIUM BICARBONATE 100 MEQ in DEXTROSE 5% WATER 1,000 ML IV SCH (13:00)
[2022-03-12] MEDS ORDERED: ONDANSETRON HCL 4MG/2ML INJ IV PRN (13:00)
[2022-03-12] MEDS ORDERED: SODIUM BICARBONATE 8.4% 1 MEQ/ML 50ML SYR IV NR (13:00)
[2022-03-12] MEDS ORDERED: CLONIDINE 0.1MG TABLET PO PRN (13:00)
[2022-03-12] MEDS ORDERED: VANCOMYCIN 1G PREMIX 200 ML IV SCH (13:45)
[2022-03-12] MEDS: PIPERACILLIN/TAZOBACTAM 3.375 G in DEXTROSE 5% WATER 50 ML IV SCH (14:00)
[2022-03-12] MEDS: PANTOPRAZOLE SODIUM 40 MG/VIAL IV SCH (14:02)
[2022-03-12 14:07] LABS: TOTAL IRON BINDING CAPACITY 171 ug/dL (250-450)
[2022-03-12 14:39] LABS: FERRITIN 1260 ng/mL (22-322)
[2022-03-12 14:48] LABS: VITAMIN B12 SERUM >2000 pg/mL pg/mL (211-911)
[2022-03-13] VITALS (7 sets, daily range): BP systolic 114–152; BP diastolic 53–81
[2022-03-13] MEDS ORDERED: DEXTROSE 50% WATER 50ML SYRINGE IV PRN (03:30)
[2022-03-13] MEDS: BLOOD SUGAR DIAGNOSTIC STRIP TEST SCH ×3 (06:22→17:13)
[2022-03-13 06:38] LABS: BASOPHILS % 0.2 % (0.0-2.0); EOSINOPHILS % 0.1 % (0.0-5.0); HEMATOCRIT. 37.1 % (42.0-52.0); LYMPHOCYTES % 15.6 % (20.0-50.0); MEAN CORPUSCULAR HEMOGLOBIN 28.9 pg (28.0-32.0); MEAN CORPUSCULAR VOLUME 89.1 fL (80.0-94.0); MONOCYTES % 5.8 % (2.0-8.0); NEUTROPHILS % 78.3 % (40.0-76.0); PLATELET 252 x1000/uL (130-400); RED BLOOD CELL COUNT 4.17 mill/uL (4.7-6.1); RED CELL DISTRIBUTION WIDTH 18.5 % (11.6-14.6)
[2022-03-13 06:50] LABS: CHLORIDE 95 mEq/L (98-107)
[2022-03-13] MEDS ORDERED: INSULIN GLARGINE 100 UNITS/ML SUBCUT SCH ×2 (07:00→21:00)
[2022-03-13] MEDS: INSULIN LISPRO 100 UNITS/ML SUBCUT SCH ×4 (07:11→21:13)
[2022-03-13] MEDS ORDERED: SODIUM BICARBONATE 8.4% 1 MEQ/ML 50ML SYR IV NR (08:45)
[2022-03-13] MEDS: PANTOPRAZOLE SODIUM 40 MG/VIAL IV SCH (09:15)
[2022-03-13] MEDS ORDERED: SODIUM BICARBONATE 100 MEQ in SODIUM CHLORIDE 0.45% 1,000 ML IV SCH (10:00)
[2022-03-13] MEDS: PIPERACILLIN/TAZOBACTAM 3.375 G in DEXTROSE 5% WATER 50 ML IV SCH ×2 (12:13→21:11)
[2022-03-13 16:46] LABS: CLARITY URINE TURBID (CLEAR); COLOR URINE DARK YELLOW (YELLOW); KETONES URINE 1+ (NEGATIVE); LEUKOCYTE ESTERASE URINE 3+ (NEGATIVE); NITRITE URINE NEGATIVE (NEGATIVE); OCCULT BLOOD URINE 3+ (NEGATIVE); PH URINE 5.5 (4.5-8.0); PROTEIN URINE 3+ (NEGATIVE); SPECIFIC GRAVITY URINE 1.019 (1.005-1.030); UROBILINOGEN URINE 0.2 E.U./dL (0.2-1.0)
[2022-03-14] VITALS: BP 128/80
[2022-03-14 04:00] VITALS: BP 120/88
[2022-03-14] MEDS: BLOOD SUGAR DIAGNOSTIC STRIP TEST SCH ×4 (06:00→17:41)
[2022-03-14 07:44] LABS: BASOPHILS % 0.2 % (0.0-2.0); EOSINOPHILS % 0.7 % (0.0-5.0); HEMOGLOBIN. 11.7 g/dL (14.0-18.0); LYMPHOCYTES % 15.9 % (20.0-50.0); MEAN CORPUSCULAR HEMOGLOBIN 29.1 pg (28.0-32.0); MEAN CORPUSCULAR VOLUME 87.1 fL (80.0-94.0); MEAN PLATELET VOLUME 8.5 fl (7.4-10.4); MONOCYTES % 6.6 % (2.0-8.0); NEUTROPHILS % 76.6 % (40.0-76.0); PLATELET 218 x1000/uL (130-400); RED BLOOD CELL COUNT 4.02 mill/uL (4.7-6.1); RED CELL DISTRIBUTION WIDTH 18.1 % (11.6-14.6)
[2022-03-14 08:00] VITALS: BP_SYST 115; BP_SYST 141; BP_DIAS 65; BP_DIAS 76
[2022-03-14] MEDS: INSULIN LISPRO 100 UNITS/ML SUBCUT SCH ×4 (08:10→20:25)
[2022-03-14] MEDS ORDERED: VANCOMYCIN 500MG PREMIX 100 ML IV NR (09:00)
[2022-03-14] MEDS: PANTOPRAZOLE SODIUM 40 MG/VIAL IV SCH (10:22)
[2022-03-14] MEDS: PIPERACILLIN/TAZOBACTAM 3.375 G in DEXTROSE 5% WATER 50 ML IV SCH ×2 (11:35→23:56)
[2022-03-14 12:00] VITALS: BP 141/65
[2022-03-14] MEDS ORDERED: KCL 20MEQ/100ML PREMIX 100 ML IV NR (12:00)
[2022-03-14] MEDS ORDERED: POTASSIUM CHLORIDE INJ 40 MEQ in DEXT 5% WATER 250 ML IV ONE (12:45)
[2022-03-14 16:00] VITALS: BP 154/74
[2022-03-14 20:00] VITALS: BP 155/74
[2022-03-14] MEDS: SODIUM BICARBONATE 75 MEQ in DEXT 5%/0.45% NACL 1000ML 1,000 ML IV SCH (20:25)
[2022-03-15] MEDS: BLOOD SUGAR DIAGNOSTIC STRIP TEST SCH ×5 (06:00→23:59)
[2022-03-15 08:00] VITALS: BP 96/36
[2022-03-15] MEDS: INSULIN LISPRO 100 UNITS/ML SUBCUT SCH ×4 (08:10→21:00)
[2022-03-15] MEDS: PANTOPRAZOLE SODIUM 40 MG/VIAL IV SCH (09:04)
[2022-03-15] MEDS: PIPERACILLIN/TAZOBACTAM 3.375 G in DEXTROSE 5% WATER 50 ML IV SCH (09:04)
[2022-03-15] MEDS ORDERED: POTASSIUM CHLORIDE INJ 40 MEQ in DEXT 5% WATER 250 ML IV ONE (09:30)
[2022-03-15 09:45] LABS: BASOPHILS % 0.2 % (0.0-2.0); EOSINOPHILS % 1.1 % (0.0-5.0); HEMATOCRIT. 37.4 % (42.0-52.0); HEMOGLOBIN. 12.4 g/dL (14.0-18.0); LYMPHOCYTES % 18.2 % (20.0-50.0); MEAN CORPUSCULAR VOLUME 87.5 fL (80.0-94.0); MEAN PLATELET VOLUME 8.8 fl (7.4-10.4); MONOCYTES % 7.7 % (2.0-8.0); NEUTROPHILS % 72.8 % (40.0-76.0); PLATELET 197 x1000/uL (130-400); RED BLOOD CELL COUNT 4.27 mill/uL (4.7-6.1); RED CELL DISTRIBUTION WIDTH 18.5 % (11.6-14.6)
[2022-03-15] MEDS ORDERED: FLUCONAZOLE 100MG TABLET PO SCH (10:00)
[2022-03-15] MEDS: KCL 20MEQ/100ML X 2 FOR TOTAL KCL 40MEQ/200ML IV SCH ×2 (11:38→13:18)
[2022-03-15 12:00] VITALS: BP 133/78
[2022-03-15] MEDS ORDERED: VANCOMYCIN 500MG PREMIX 100 ML IV SCH (13:00)
[2022-03-15] MEDS ORDERED: LACTULOSE 20G/30ML UDC PO SCH (13:15)
[2022-03-15] MEDS: DOCUSATE SODIUM 100MG CAPSULE PO SCH (13:28)
[2022-03-15 14:44] LABS: HEPATITIS B SURFACE ANTIGEN NEGATIVE
[2022-03-15] MEDS: SODIUM BICARBONATE 75 MEQ in DEXT 5%/0.45% NACL 1000ML 1,000 ML IV SCH (15:41)
[2022-03-15 16:00] VITALS: BP 144/84
[2022-03-15] MEDS: CEFTRIAXONE 1,000 MG in DEXTROSE 5% WATER 50 ML IV SCH (17:15)
[2022-03-15 20:00] VITALS: BP 157/80
[2022-03-15] MEDS: METRONIDAZOLE 500 MG PREMIX 100 ML IV SCH (20:53)
[2022-03-16] VITALS: BP 142/75
[2022-03-16 04:00] VITALS: BP 154/83
[2022-03-16 06:23] LABS: BASOPHILS % 0.4 % (0.0-2.0); EOSINOPHILS % 1.3 % (0.0-5.0); HEMATOCRIT. 41.7 % (42.0-52.0); MEAN CORPUSCULAR HEMOGLOBIN 29.2 pg (28.0-32.0); MEAN CORPUSCULAR VOLUME 93.6 fL (80.0-94.0); MEAN PLATELET VOLUME 8.7 fl (7.4-10.4); MONOCYTES % 6.5 % (2.0-8.0); NEUTROPHILS % 70.8 % (40.0-76.0); PLATELET 55 x1000/uL (130-400); RED BLOOD CELL COUNT 4.46 mill/uL (4.7-6.1)
[2022-03-16 06:32] LABS: CHLORIDE 98 mEq/L (98-107)
[2022-03-16] MEDS: BLOOD SUGAR DIAGNOSTIC STRIP TEST SCH ×4 (07:00→22:25)
[2022-03-16] MEDS: INSULIN LISPRO 100 UNITS/ML SUBCUT SCH ×4 (07:53→22:11)
[2022-03-16 08:00] VITALS: BP 112/76
[2022-03-16 08:20] LABS: PHOSPHORUS > 9.0 mg/dL (2.5-4.9)
[2022-03-16] MEDS: PANTOPRAZOLE SODIUM 40 MG/VIAL IV SCH (08:59)
[2022-03-16] MEDS: FLUCONAZOLE 100MG TABLET PO SCH ×2 (08:59→09:00)
[2022-03-16] MEDS: DOCUSATE SODIUM 100MG CAPSULE PO SCH ×2 (08:59→09:00)
[2022-03-16] MEDS ORDERED: LORAZEPAM 2MG/ML CPJ IV PRN (11:15)
[2022-03-16 12:00] VITALS: BP 153/82
[2022-03-16] MEDS: LANTHANUM CARBONATE 500MG CHEW TABLET PO SCH ×2 (13:10→17:42)
[2022-03-16] MEDS ORDERED: ALBUMIN HUMAN 12.5G/250ML (5%) IV PRN (13:30)
[2022-03-16 16:00] VITALS: BP 117/74
[2022-03-16] MEDS: MIDODRINE HCL 5MG TABLET PO SCH ×2 (16:00→23:48)
[2022-03-16] MEDS ORDERED: MIDODRINE HCL 5MG TABLET PO SCH (16:00)
[2022-03-16] MEDS: FLUCONAZOLE 200 MG/100ML BAG 100 ML IV SCH (16:49)
[2022-03-16] MEDS: CEFTRIAXONE 1,000 MG in DEXTROSE 5% WATER 50 ML IV SCH (18:06)
[2022-03-16] MEDS: SODIUM BICARBONATE 75 MEQ in DEXT 5%/0.45% NACL 1000ML 1,000 ML IV SCH ×2 (18:06→18:07)
[2022-03-16 20:00] VITALS: BP 159/76
[2022-03-16] MEDS: METRONIDAZOLE 500 MG PREMIX 100 ML IV SCH (21:00)
[2022-03-17] VITALS: BP 135/78
[2022-03-17 04:00] VITALS: BP 139/76
[2022-03-17] MEDS: BLOOD SUGAR DIAGNOSTIC STRIP TEST SCH ×3 (05:23→17:20)
[2022-03-17] MEDS: INSULIN LISPRO 100 UNITS/ML SUBCUT SCH ×4 (05:52→20:37)
[2022-03-17 08:00] VITALS: BP 127/62
[2022-03-17] MEDS: MIDODRINE HCL 5MG TABLET PO SCH ×2 (08:00→16:00)
[2022-03-17] MEDS: LANTHANUM CARBONATE 500MG CHEW TABLET PO SCH ×3 (08:10→17:16)
[2022-03-17] MEDS: PANTOPRAZOLE SODIUM 40 MG/VIAL IV SCH (08:28)
[2022-03-17] MEDS: DOCUSATE SODIUM 100MG CAPSULE PO SCH (08:29)
[2022-03-17 10:35] LABS: BASOPHILS % 0.4 % (0.0-2.0); EOSINOPHILS % 2.1 % (0.0-5.0); HEMATOCRIT. 35.1 % (42.0-52.0); HEMOGLOBIN. 11.3 g/dL (14.0-18.0); LYMPHOCYTES % 18.9 % (20.0-50.0); MEAN CORPUSCULAR HEMOGLOBIN 28.8 pg (28.0-32.0); MEAN CORPUSCULAR VOLUME 89.6 fL (80.0-94.0); MEAN PLATELET VOLUME 8.9 fl (7.4-10.4); MONOCYTES % 6.4 % (2.0-8.0); NEUTROPHILS % 72.2 % (40.0-76.0); PLATELET 154 x1000/uL (130-400); RED BLOOD CELL COUNT 3.92 mill/uL (4.7-6.1); RED CELL DISTRIBUTION WIDTH 18.1 % (11.6-14.6)
[2022-03-17] MEDS: SODIUM BICARBONATE 75 MEQ in DEXT 5%/0.45% NACL 1000ML 1,000 ML IV SCH (10:39)
[2022-03-17 12:00] VITALS: BP 132/70
[2022-03-17] MEDS ORDERED: POTASSIUM CHLORIDE INJ 40 MEQ in DEXT 5% WATER 250 ML IV ONE (13:15)
[2022-03-17] MEDS ORDERED: KCL 20MEQ/100ML X 2 FOR TOTAL KCL 40MEQ/200ML IV SCH (14:00)
[2022-03-17 16:00] VITALS: BP 130/68
[2022-03-17] MEDS: FLUCONAZOLE 200 MG/100ML BAG 100 ML IV SCH (16:00)
[2022-03-17] MEDS: CEFTRIAXONE 1,000 MG in DEXTROSE 5% WATER 50 ML IV SCH (18:10)
[2022-03-17 20:00] VITALS: BP 127/73
[2022-03-17] MEDS: METRONIDAZOLE 500 MG PREMIX 100 ML IV SCH (20:48)
[2022-03-18] VITALS: BP 146/86
[2022-03-18 04:00] VITALS: BP 154/64
[2022-03-18] MEDS: BLOOD SUGAR DIAGNOSTIC STRIP TEST SCH ×5 (05:00→23:40)
[2022-03-18] MEDS: SODIUM BICARBONATE 75 MEQ in DEXT 5%/0.45% NACL 1000ML 1,000 ML IV SCH ×2 (05:28→13:38)
[2022-03-18 08:00] VITALS: BP 127/62
[2022-03-18] MEDS: MIDODRINE HCL 5MG TABLET PO SCH ×3 (08:00→16:00)
[2022-03-18] MEDS: INSULIN LISPRO 100 UNITS/ML SUBCUT SCH ×3 (08:10→20:41)
[2022-03-18] MEDS: LANTHANUM CARBONATE 500MG CHEW TABLET PO SCH ×2 (08:10→17:10)
[2022-03-18] MEDS: DOCUSATE SODIUM 100MG CAPSULE PO SCH (09:00)
[2022-03-18] MEDS: PANTOPRAZOLE SODIUM 40 MG/VIAL IV SCH (09:52)
[2022-03-18] MEDS: LORAZEPAM 2MG/ML CPJ IV PRN (10:44)
[2022-03-18 12:00] VITALS: BP 163/85
[2022-03-18] MEDS ORDERED: HYDRALAZINE 20MG/ML VIAL IV SCH (13:00)
[2022-03-18] MEDS: AMLODIPINE 2.5MG TABLET NG SCH (14:35)
[2022-03-18 16:00] VITALS: BP 145/67
[2022-03-18] MEDS ORDERED: [UNRECOGNIZED DRUG - REMARK] XX SCH (16:30)
[2022-03-18] MEDS: FLUCONAZOLE 200 MG/100ML BAG 100 ML IV SCH (17:59)
[2022-03-18] MEDS: FLUCONAZOLE 200MG/5ML ORAL SYR GT SCH (18:00)
[2022-03-18 20:00] VITALS: BP 174/80
[2022-03-18] MEDS: HYDRALAZINE 20MG/ML VIAL IV PRN (21:37)
[2022-03-18] MEDS: METRONIDAZOLE 500MG TABLET GT SCH (21:37)
[2022-03-19] VITALS: BP 184/86
[2022-03-19] MEDS: CLONIDINE 0.1MG TABLET NG SCH ×4 (00:17→21:28)
[2022-03-19 04:00] VITALS: BP 145/92
[2022-03-19] MEDS: BLOOD SUGAR DIAGNOSTIC STRIP TEST SCH ×3 (06:00→18:58)
[2022-03-19] MEDS: SODIUM BICARBONATE 75 MEQ in DEXT 5%/0.45% NACL 1000ML 1,000 ML IV SCH (06:24)
[2022-03-19] MEDS: INSULIN LISPRO 100 UNITS/ML SUBCUT SCH ×4 (06:25→21:00)
[2022-03-19 08:00] VITALS: BP 149/76
[2022-03-19] MEDS: MIDODRINE HCL 5MG TABLET PO SCH ×3 (08:00→16:46)
[2022-03-19] MEDS: AMLODIPINE 2.5MG TABLET NG SCH (09:01)
[2022-03-19] MEDS: PANTOPRAZOLE SODIUM 40 MG/VIAL IV SCH (09:01)
[2022-03-19] MEDS: LANTHANUM CARBONATE 500MG CHEW TABLET PO SCH ×3 (09:01→16:46)
[2022-03-19] MEDS: DOCUSATE SODIUM SUGAR FREE 100MG/10ML UDC PO SCH (09:02)
[2022-03-19 10:05] LABS: BASOPHILS % 0.5 % (0.0-2.0); HEMATOCRIT. 31.6 % (42.0-52.0); HEMOGLOBIN. 10.2 g/dL (14.0-18.0); LYMPHOCYTES % 16.2 % (20.0-50.0); MEAN CORPUSCULAR HEMOGLOBIN 28.9 pg (28.0-32.0); MEAN CORPUSCULAR VOLUME 89.1 fL (80.0-94.0); MEAN PLATELET VOLUME 8.6 fl (7.4-10.4); MONOCYTES % 7.8 % (2.0-8.0); NEUTROPHILS % 72.5 % (40.0-76.0); PLATELET 141 x1000/uL (130-400); RED BLOOD CELL COUNT 3.54 mill/uL (4.7-6.1); RED CELL DISTRIBUTION WIDTH 18.3 % (11.6-14.6)
[2022-03-19] MEDS ORDERED: POTASSIUM CHLORIDE 20MEQ/PACKET PO NR (12:00)
[2022-03-19 16:00] VITALS: BP 102/61
[2022-03-19] MEDS: CEFTRIAXONE 1,000 MG in DEXTROSE 5% WATER 50 ML IV SCH (17:58)
[2022-03-19] MEDS: FLUCONAZOLE 200MG/5ML ORAL SYR GT SCH (17:59)
[2022-03-19 20:00] VITALS: BP 136/73
[2022-03-19] MEDS: METRONIDAZOLE 500MG TABLET GT SCH (21:28)
[2022-03-19] MEDS: LORAZEPAM 2MG/ML CPJ IV PRN (21:34)
[2022-03-20] VITALS: BP 152/74
[2022-03-20] MEDS: ACETAMINOPHEN 650MG/20.3ML UDC PO PRN (01:39)
[2022-03-20 04:00] VITALS: BP 151/98
[2022-03-20] MEDS: BLOOD SUGAR DIAGNOSTIC STRIP TEST SCH ×4 (06:33→18:04)
[2022-03-20] MEDS: CLONIDINE 0.1MG TABLET NG SCH ×3 (06:38→21:08)
[2022-03-20] MEDS: LANTHANUM CARBONATE 500MG CHEW TABLET PO SCH ×3 (06:38→17:43)
[2022-03-20] MEDS: INSULIN LISPRO 100 UNITS/ML SUBCUT SCH ×4 (06:55→21:08)
[2022-03-20 08:00] VITALS: BP 115/66
[2022-03-20] MEDS: MIDODRINE HCL 5MG TABLET PO SCH ×3 (08:00→16:00)
[2022-03-20 08:27] LABS: BASOPHILS % 0.7 % (0.0-2.0); EOSINOPHILS % 2.2 % (0.0-5.0); HEMATOCRIT. 29.9 % (42.0-52.0); HEMOGLOBIN. 9.7 g/dL (14.0-18.0); LYMPHOCYTES % 15.3 % (20.0-50.0); MEAN CORPUSCULAR HEMOGLOBIN 29.1 pg (28.0-32.0); MEAN CORPUSCULAR VOLUME 90.1 fL (80.0-94.0); MEAN PLATELET VOLUME 9.1 fl (7.4-10.4); MONOCYTES % 6.3 % (2.0-8.0); NEUTROPHILS % 75.5 % (40.0-76.0); PLATELET 138 x1000/uL (130-400); RED BLOOD CELL COUNT 3.32 mill/uL (4.7-6.1); RED CELL DISTRIBUTION WIDTH 18.1 % (11.6-14.6)
[2022-03-20] MEDS: AMLODIPINE 2.5MG TABLET NG SCH (09:00)
[2022-03-20] MEDS ORDERED: POTASSIUM CHLORIDE 20MEQ TABLET SR PO NR (09:45)
[2022-03-20] MEDS: DOCUSATE SODIUM SUGAR FREE 100MG/10ML UDC PO SCH (09:51)
[2022-03-20] MEDS: PANTOPRAZOLE SODIUM 40 MG/VIAL IV SCH (09:51)
[2022-03-20] MEDS ORDERED: POTASSIUM CHLORIDE 20MEQ/PACKET PO SCH (10:00)
[2022-03-20 11:19] LABS: PHOSPHORUS 4.2 mg/dL (2.5-4.9)
[2022-03-20 12:00] VITALS: BP 120/59
[2022-03-20] MEDS: THIAMINE HCL 100MG TABLET NG SCH (12:33)
[2022-03-20] MEDS: FOLIC ACID/VITAMIN B COMP W-C TABLET PO SCH (12:33)
[2022-03-20 16:00] VITALS: BP 131/62
[2022-03-20] MEDS: FLUCONAZOLE 200MG/5ML ORAL SYR GT SCH (17:42)
[2022-03-20] MEDS: CEFTRIAXONE 1,000 MG in DEXTROSE 5% WATER 50 ML IV SCH (18:47)
[2022-03-20 20:00] VITALS: BP 115/67
[2022-03-20] MEDS: METRONIDAZOLE 500MG TABLET GT SCH (21:08)
[2022-03-21] VITALS (7 sets, daily range): BP systolic 118–145; BP diastolic 57–73
[2022-03-21] MEDS: MIDODRINE HCL 5MG TABLET PO SCH ×4 (00:22→23:15)
[2022-03-21] MEDS: LORAZEPAM 2MG/ML CPJ IV PRN (02:30)
[2022-03-21] MEDS: BLOOD SUGAR DIAGNOSTIC STRIP TEST SCH ×5 (06:00→23:15)
[2022-03-21] MEDS: CLONIDINE 0.1MG TABLET NG SCH ×3 (06:30→20:58)
[2022-03-21] MEDS: LANTHANUM CARBONATE 500MG CHEW TABLET PO SCH ×3 (06:30→17:33)
[2022-03-21] MEDS: INSULIN LISPRO 100 UNITS/ML SUBCUT SCH ×4 (06:30→20:57)
[2022-03-21 08:05] LABS: BASOPHILS % 0.4 % (0.0-2.0); EOSINOPHILS % 1.9 % (0.0-5.0); HEMATOCRIT. 30.5 % (42.0-52.0); HEMOGLOBIN. 9.9 g/dL (14.0-18.0); LYMPHOCYTES % 22.1 % (20.0-50.0); MEAN CORPUSCULAR HEMOGLOBIN 29.3 pg (28.0-32.0); MEAN CORPUSCULAR VOLUME 90.7 fL (80.0-94.0); MEAN PLATELET VOLUME 9.3 fl (7.4-10.4); MONOCYTES % 7.5 % (2.0-8.0); NEUTROPHILS % 68.1 % (40.0-76.0); PLATELET 135 x1000/uL (130-400); RED BLOOD CELL COUNT 3.36 mill/uL (4.7-6.1); RED CELL DISTRIBUTION WIDTH 18.1 % (11.6-14.6)
[2022-03-21] MEDS: THIAMINE HCL 100MG TABLET NG SCH (08:41)
[2022-03-21] MEDS: FOLIC ACID/VITAMIN B COMP W-C TABLET PO SCH (08:41)
[2022-03-21] MEDS: DOCUSATE SODIUM SUGAR FREE 100MG/10ML UDC PO SCH (08:41)
[2022-03-21] MEDS: PANTOPRAZOLE SODIUM 40 MG/VIAL IV SCH (08:42)
[2022-03-21] MEDS: AMLODIPINE 2.5MG TABLET NG SCH (08:42)
[2022-03-21] MEDS ORDERED: POTASSIUM CHLORIDE 20MEQ TABLET SR PO NR (09:15)
[2022-03-21 11:39] LABS: PHOSPHORUS 4.9 mg/dL (2.5-4.9)
[2022-03-21] MEDS: FLUCONAZOLE 200MG/5ML ORAL SYR GT SCH (17:33)
[2022-03-21] MEDS: CEFTRIAXONE 1,000 MG in DEXTROSE 5% WATER 50 ML IV SCH (17:33)
[2022-03-21] MEDS: METRONIDAZOLE 500MG TABLET GT SCH (20:56)
[2022-03-22] VITALS: BP 145/67
[2022-03-22 04:00] VITALS: BP 155/69
[2022-03-22] MEDS: CLONIDINE 0.1MG TABLET NG SCH ×3 (06:00→21:50)
[2022-03-22] MEDS: BLOOD SUGAR DIAGNOSTIC STRIP TEST SCH ×3 (06:12→17:27)
[2022-03-22 07:49] LABS: BASOPHILS % 0.2 % (0.0-2.0); HEMOGLOBIN. 9.9 g/dL (14.0-18.0); MEAN CORPUSCULAR HEMOGLOBIN 29.4 pg (28.0-32.0); MEAN PLATELET VOLUME 9.7 fl (7.4-10.4); MONOCYTES % 6.3 % (2.0-8.0); NEUTROPHILS % 63.5 % (40.0-76.0); PLATELET 156 x1000/uL (130-400); RED BLOOD CELL COUNT 3.38 mill/uL (4.7-6.1); RED CELL DISTRIBUTION WIDTH 17.8 % (11.6-14.6)
[2022-03-22 08:00] VITALS: BP 124/59
[2022-03-22] MEDS: AMLODIPINE 2.5MG TABLET NG SCH (08:43)
[2022-03-22] MEDS: LANTHANUM CARBONATE 500MG CHEW TABLET PO SCH ×3 (08:43→17:27)
[2022-03-22] MEDS: INSULIN LISPRO 100 UNITS/ML SUBCUT SCH ×4 (08:43→21:00)
[2022-03-22] MEDS: MIDODRINE HCL 5MG TABLET PO SCH ×2 (08:43→15:54)
[2022-03-22] MEDS: FOLIC ACID/VITAMIN B COMP W-C TABLET PO SCH (08:43)
[2022-03-22] MEDS: PANTOPRAZOLE SODIUM 40 MG/VIAL IV SCH (08:43)
[2022-03-22] MEDS: DOCUSATE SODIUM SUGAR FREE 100MG/10ML UDC PO SCH (08:44)
[2022-03-22] MEDS: THIAMINE HCL 100MG TABLET NG SCH (08:45)
[2022-03-22 12:00] VITALS: BP 98/59
[2022-03-22 16:00] VITALS: BP 136/63
[2022-03-22 20:00] VITALS: BP 126/53
[2022-03-23] VITALS: BP 151/56
[2022-03-23] MEDS: BLOOD SUGAR DIAGNOSTIC STRIP TEST SCH ×4 (00:03→17:23)
[2022-03-23] MEDS: HYDRALAZINE 20MG/ML VIAL IV PRN (03:45)
[2022-03-23 04:00] VITALS: BP 170/61
[2022-03-23] MEDS: INSULIN LISPRO 100 UNITS/ML SUBCUT SCH ×4 (05:36→20:55)
[2022-03-23] MEDS: CLONIDINE 0.1MG TABLET NG SCH ×3 (05:36→20:56)
[2022-03-23 08:00] VITALS: BP 123/57
[2022-03-23] MEDS: THIAMINE HCL 100MG TABLET NG SCH (09:12)
[2022-03-23] MEDS: FOLIC ACID/VITAMIN B COMP W-C TABLET PO SCH (09:12)
[2022-03-23] MEDS: AMLODIPINE 2.5MG TABLET NG SCH (09:12)
[2022-03-23] MEDS: DOCUSATE SODIUM SUGAR FREE 100MG/10ML UDC PO SCH (09:13)
[2022-03-23] MEDS: LANTHANUM CARBONATE 500MG CHEW TABLET PO SCH ×3 (09:13→17:25)
[2022-03-23] MEDS: MIDODRINE HCL 5MG TABLET PO SCH ×3 (09:13→17:25)
[2022-03-23] MEDS: PANTOPRAZOLE SODIUM 40 MG/VIAL IV SCH (09:13)
[2022-03-23 11:27] LABS: BASOPHILS % 0.4 % (0.0-2.0); EOSINOPHILS % 1.3 % (0.0-5.0); HEMATOCRIT. 28.8 % (42.0-52.0); HEMOGLOBIN. 9.5 g/dL (14.0-18.0); LYMPHOCYTES % 20.5 % (20.0-50.0); MEAN CORPUSCULAR HEMOGLOBIN 29.2 pg (28.0-32.0); MEAN CORPUSCULAR VOLUME 89.1 fL (80.0-94.0); MEAN PLATELET VOLUME 9.2 fl (7.4-10.4); MONOCYTES % 10.2 % (2.0-8.0); NEUTROPHILS % 67.6 % (40.0-76.0); PLATELET 166 x1000/uL (130-400); RED BLOOD CELL COUNT 3.23 mill/uL (4.7-6.1)
[2022-03-23] MEDS: MORPHINE SULFATE 2 MG/ML CPJ (NOT FOR IM USE) IV PRN (11:28)
[2022-03-23] MEDS ORDERED: NALOXONE HCL 0.4MG/ML VIAL IV PRN (11:30)
[2022-03-23 11:39] LABS: INR 1.1; PROTHROMBIN TIME 11.7 sec (9.6-11.0)
[2022-03-23 12:00] VITALS: BP 125/58
[2022-03-23] MEDS ORDERED: LORAZEPAM 2MG/ML CPJ IV PRN (13:15)
[2022-03-23 16:00] VITALS: BP 115/56
[2022-03-23] MEDS ORDERED: MINERAL OIL ENEMA 133ML PR NR (16:00)
[2022-03-23] MEDS: METOCLOPRAMIDE HCL 5MG TABLET PO SCH ×2 (17:27→17:28)
[2022-03-23 20:00] VITALS: BP 149/58
[2022-03-24] VITALS: BP 132/60
[2022-03-24] MEDS: METOCLOPRAMIDE HCL 5MG TABLET PO SCH ×4 (00:13→17:05)
[2022-03-24] MEDS: DEXT 5%/0.9% NACL 1,000 ML IV SCH ×2 (00:14→13:36)
[2022-03-24 04:00] VITALS: BP 147/58
[2022-03-24] MEDS: BLOOD SUGAR DIAGNOSTIC STRIP TEST SCH ×4 (06:17→17:34)
[2022-03-24] MEDS: INSULIN LISPRO 100 UNITS/ML SUBCUT SCH ×4 (06:36→22:00)
[2022-03-24] MEDS: CLONIDINE 0.1MG TABLET NG SCH ×3 (06:37→21:59)
[2022-03-24 06:40] LABS: INR 1.1; PROTHROMBIN TIME 11.4 sec (9.6-11.0)
[2022-03-24 06:43] LABS: BASOPHILS % 0.5 % (0.0-2.0); EOSINOPHILS % 3.2 % (0.0-5.0); HEMATOCRIT. 28.1 % (42.0-52.0); HEMOGLOBIN. 9.3 g/dL (14.0-18.0); LYMPHOCYTES % 17.1 % (20.0-50.0); MEAN CORPUSCULAR VOLUME 90.6 fL (80.0-94.0); MEAN PLATELET VOLUME 9.1 fl (7.4-10.4); MONOCYTES % 8.6 % (2.0-8.0); NEUTROPHILS % 70.6 % (40.0-76.0); PLATELET 153 x1000/uL (130-400); RED CELL DISTRIBUTION WIDTH 18.4 % (11.6-14.6)
[2022-03-24 08:00] VITALS: BP 107/54
[2022-03-24] MEDS: MIDODRINE HCL 5MG TABLET PO SCH ×4 (08:00→16:00)
[2022-03-24] MEDS: LANTHANUM CARBONATE 500MG CHEW TABLET PO SCH ×3 (08:10→17:34)
[2022-03-24] MEDS: THIAMINE HCL 100MG TABLET NG SCH (09:00)
[2022-03-24] MEDS: AMLODIPINE 2.5MG TABLET NG SCH (09:00)
[2022-03-24] MEDS: DOCUSATE SODIUM SUGAR FREE 100MG/10ML UDC PO SCH (09:00)
[2022-03-24] MEDS: FOLIC ACID/VITAMIN B COMP W-C TABLET PO SCH (09:00)
[2022-03-24] MEDS: PANTOPRAZOLE SODIUM 40 MG/VIAL IV SCH (09:16)
[2022-03-24 12:00] VITALS: BP 127/61
[2022-03-24] MEDS ORDERED: CEFAZOLIN 1000MG PREMIX 50 ML IV NR (14:00)
[2022-03-24] MEDS ORDERED: ETOMIDATE 2MG/ML 10ML VIAL IV ONE (14:46)
[2022-03-24] MEDS ORDERED: PROPOFOL 200MG/20ML VIAL IV ONE (14:46)
[2022-03-24] MEDS ORDERED: MIDAZOLAM HCL 2 MG/2 ML VIAL ONE (14:47)
[2022-03-24] MEDS ORDERED: TUBERCULIN,PURIF.PROT.DERIV. 5 TU/0.1 ML SYR ID ONE (15:00)
[2022-03-24 20:00] VITALS: BP 119/58
[2022-03-24 20:46] VITALS: BP 119/58
[2022-03-24] MEDS: INSULIN GLARGINE 100 UNITS/ML SUBCUT SCH (21:59)
[2022-03-25 00:41] VITALS: BP 145/83
[2022-03-25] MEDS: METOCLOPRAMIDE HCL 5MG TABLET PO SCH ×4 (01:03→16:55)
[2022-03-25 04:00] VITALS: BP 146/60
[2022-03-25] MEDS: DEXT 5%/0.9% NACL 1,000 ML IV SCH ×2 (04:07→16:01)
[2022-03-25] MEDS: INSULIN LISPRO 100 UNITS/ML SUBCUT SCH ×4 (06:16→21:27)
[2022-03-25] MEDS: BLOOD SUGAR DIAGNOSTIC STRIP TEST SCH ×4 (06:16→17:02)
[2022-03-25 06:24] LABS: BASOPHILS % 0.4 % (0.0-2.0); EOSINOPHILS % 3.1 % (0.0-5.0); HEMATOCRIT. 27.7 % (42.0-52.0); HEMOGLOBIN. 9.1 g/dL (14.0-18.0); MEAN CORPUSCULAR HEMOGLOBIN 29.5 pg (28.0-32.0); MEAN CORPUSCULAR VOLUME 89.6 fL (80.0-94.0); MEAN PLATELET VOLUME 8.9 fl (7.4-10.4); MONOCYTES % 8.4 % (2.0-8.0); NEUTROPHILS % 61.1 % (40.0-76.0); PLATELET 168 x1000/uL (130-400); RED BLOOD CELL COUNT 3.09 mill/uL (4.7-6.1); RED CELL DISTRIBUTION WIDTH 17.9 % (11.6-14.6)
[2022-03-25] MEDS: CLONIDINE 0.1MG TABLET NG SCH ×3 (06:34→21:26)
[2022-03-25 08:00] VITALS: BP 124/62
[2022-03-25] MEDS: DOCUSATE SODIUM SUGAR FREE 100MG/10ML UDC PO SCH (08:16)
[2022-03-25] MEDS: FOLIC ACID/VITAMIN B COMP W-C TABLET PO SCH (08:16)
[2022-03-25] MEDS: PANTOPRAZOLE SODIUM 40 MG/VIAL IV SCH (08:16)
[2022-03-25] MEDS: LANTHANUM CARBONATE 500MG CHEW TABLET PO SCH ×3 (08:16→16:54)
[2022-03-25] MEDS: MIDODRINE HCL 5MG TABLET PO SCH ×3 (08:16→16:54)
[2022-03-25] MEDS: THIAMINE HCL 100MG TABLET NG SCH (08:16)
[2022-03-25] MEDS: AMLODIPINE 2.5MG TABLET NG SCH (09:00)
[2022-03-25] MEDS ORDERED: KCL 20MEQ/100ML PREMIX 100 ML IV NR (10:00)
[2022-03-25 12:00] VITALS: BP 109/66
[2022-03-25 16:00] VITALS: BP 152/41
[2022-03-25] MEDS: MORPHINE SULFATE 2 MG/ML CPJ (NOT FOR IM USE) IV PRN (18:05)
[2022-03-25 20:00] VITALS: BP 133/59
[2022-03-25] MEDS: INSULIN GLARGINE 100 UNITS/ML SUBCUT SCH (21:27)
[2022-03-26] VITALS: BP 128/57
[2022-03-26 04:00] VITALS: BP 133/60
[2022-03-26] MEDS: BLOOD SUGAR DIAGNOSTIC STRIP TEST SCH ×4 (06:26→17:27)
[2022-03-26] MEDS: METOCLOPRAMIDE HCL 5MG TABLET PO SCH ×4 (06:32→17:26)
[2022-03-26] MEDS: CLONIDINE 0.1MG TABLET NG SCH ×3 (06:32→21:24)
[2022-03-26 07:19] LABS: BASOPHILS % 0.4 % (0.0-2.0); EOSINOPHILS % 2.7 % (0.0-5.0); HEMATOCRIT. 27.3 % (42.0-52.0); HEMOGLOBIN. 9.1 g/dL (14.0-18.0); LYMPHOCYTES % 23.7 % (20.0-50.0); MEAN CORPUSCULAR VOLUME 89.9 fL (80.0-94.0); MEAN PLATELET VOLUME 8.7 fl (7.4-10.4); MONOCYTES % 8.7 % (2.0-8.0); NEUTROPHILS % 64.5 % (40.0-76.0); PLATELET 162 x1000/uL (130-400); RED BLOOD CELL COUNT 3.03 mill/uL (4.7-6.1)
[2022-03-26 08:00] VITALS: BP 129/56
[2022-03-26] MEDS: DOCUSATE SODIUM SUGAR FREE 100MG/10ML UDC PO SCH (08:00)
[2022-03-26] MEDS: FOLIC ACID/VITAMIN B COMP W-C TABLET PO SCH (08:00)
[2022-03-26] MEDS: THIAMINE HCL 100MG TABLET NG SCH (08:00)
[2022-03-26] MEDS: INSULIN LISPRO 100 UNITS/ML SUBCUT SCH ×4 (08:00→21:24)
[2022-03-26] MEDS: AMLODIPINE 2.5MG TABLET NG SCH (08:01)
[2022-03-26] MEDS: PANTOPRAZOLE SODIUM 40 MG/VIAL IV SCH (08:01)
[2022-03-26] MEDS: LANTHANUM CARBONATE 500MG CHEW TABLET PO SCH ×3 (08:01→17:25)
[2022-03-26] MEDS: MIDODRINE HCL 5MG TABLET PO SCH ×3 (08:01→17:26)
[2022-03-26 12:00] VITALS: BP 130/57
[2022-03-26 16:00] VITALS: BP 135/58
[2022-03-26] MEDS: DEXT 5%/0.9% NACL 1,000 ML IV SCH (18:41)
[2022-03-26 20:00] VITALS: BP 141/57
[2022-03-26] MEDS: INSULIN GLARGINE 100 UNITS/ML SUBCUT SCH (21:23)
[2022-03-27] VITALS: BP 143/61
[2022-03-27 04:00] VITALS: BP 142/61
[2022-03-27] MEDS: BLOOD SUGAR DIAGNOSTIC STRIP TEST SCH ×4 (06:00→17:04)
[2022-03-27] MEDS: CLONIDINE 0.1MG TABLET NG SCH ×3 (06:00→21:49)
[2022-03-27] MEDS: METOCLOPRAMIDE HCL 5MG TABLET PO SCH ×4 (06:00→15:33)
[2022-03-27 08:00] VITALS: BP 151/68
[2022-03-27] MEDS: DEXT 5%/0.9% NACL 1,000 ML IV SCH ×3 (08:01→21:49)
[2022-03-27] MEDS: DOCUSATE SODIUM SUGAR FREE 100MG/10ML UDC PO SCH (08:33)
[2022-03-27] MEDS: PANTOPRAZOLE SODIUM 40 MG/VIAL IV SCH (08:34)
[2022-03-27] MEDS: LANTHANUM CARBONATE 500MG CHEW TABLET PO SCH ×3 (08:34→15:33)
[2022-03-27] MEDS: FOLIC ACID/VITAMIN B COMP W-C TABLET PO SCH (08:34)
[2022-03-27] MEDS: MIDODRINE HCL 5MG TABLET PO SCH ×3 (08:34→15:33)
[2022-03-27] MEDS: INSULIN LISPRO 100 UNITS/ML SUBCUT SCH ×4 (08:35→22:32)
[2022-03-27] MEDS: AMLODIPINE 2.5MG TABLET NG SCH (09:00)
[2022-03-27 12:00] VITALS: BP 135/64
[2022-03-27 12:58] LABS: BASOPHILS % 0.6 % (0.0-2.0); EOSINOPHILS % 2.4 % (0.0-5.0); HEMATOCRIT. 27.9 % (42.0-52.0); HEMOGLOBIN. 9.4 g/dL (14.0-18.0); LYMPHOCYTES % 19.7 % (20.0-50.0); MEAN CORPUSCULAR HEMOGLOBIN 29.5 pg (28.0-32.0); MEAN CORPUSCULAR VOLUME 87.8 fL (80.0-94.0); MEAN PLATELET VOLUME 8.6 fl (7.4-10.4); MONOCYTES % 9.1 % (2.0-8.0); NEUTROPHILS % 68.2 % (40.0-76.0); PLATELET 167 x1000/uL (130-400); RED BLOOD CELL COUNT 3.18 mill/uL (4.7-6.1); RED CELL DISTRIBUTION WIDTH 17.7 % (11.6-14.6)
[2022-03-27] MEDS: MORPHINE SULFATE 2 MG/ML CPJ (NOT FOR IM USE) IV PRN (13:21)
[2022-03-27] MEDS: ACETAMINOPHEN 650MG/20.3ML UDC PO PRN (15:33)
[2022-03-27 16:00] VITALS: BP 123/51
[2022-03-27 20:00] VITALS: BP 124/57
[2022-03-27] MEDS: INSULIN GLARGINE 100 UNITS/ML SUBCUT SCH (22:06)
[2022-03-28] VITALS: BP 158/62
[2022-03-28] MEDS: METOCLOPRAMIDE HCL 5MG TABLET PO SCH ×4 (01:59→17:06)
[2022-03-28] MEDS: ACETAMINOPHEN 650MG/20.3ML UDC PO PRN (02:02)
[2022-03-28] MEDS: MIDODRINE HCL 5MG TABLET PO SCH ×3 (02:02→15:35)
[2022-03-28] MEDS: BLOOD SUGAR DIAGNOSTIC STRIP TEST SCH ×4 (02:19→16:59)
[2022-03-28 04:00] VITALS: BP 153/67
[2022-03-28] MEDS: CLONIDINE 0.1MG TABLET NG SCH ×3 (06:21→21:48)
[2022-03-28 06:33] LABS: BASOPHILS % 0.6 % (0.0-2.0); EOSINOPHILS % 3.6 % (0.0-5.0); HEMATOCRIT. 27.8 % (42.0-52.0); LYMPHOCYTES % 24.3 % (20.0-50.0); MEAN CORPUSCULAR VOLUME 89.9 fL (80.0-94.0); MEAN PLATELET VOLUME 8.7 fl (7.4-10.4); MONOCYTES % 8.5 % (2.0-8.0); PLATELET 164 x1000/uL (130-400); RED BLOOD CELL COUNT 3.09 mill/uL (4.7-6.1)
[2022-03-28 08:00] VITALS: BP 147/60
[2022-03-28] MEDS: FOLIC ACID/VITAMIN B COMP W-C TABLET PO SCH (10:02)
[2022-03-28] MEDS: DOCUSATE SODIUM SUGAR FREE 100MG/10ML UDC PO SCH (10:02)
[2022-03-28] MEDS: AMLODIPINE 2.5MG TABLET NG SCH (10:02)
[2022-03-28] MEDS: LANTHANUM CARBONATE 500MG CHEW TABLET PO SCH ×3 (10:02→17:06)
[2022-03-28] MEDS: PANTOPRAZOLE SODIUM 40 MG/VIAL IV SCH (10:03)
[2022-03-28] MEDS: INSULIN LISPRO 100 UNITS/ML SUBCUT SCH ×4 (10:06→21:51)
[2022-03-28] MEDS ORDERED: POTASSIUM CHLORIDE 20MEQ/PACKET PO SCH (10:15)
[2022-03-28] MEDS: DEXT 5%/0.9% NACL 1,000 ML IV SCH (10:37)
[2022-03-28 12:00] VITALS: BP 127/58
[2022-03-28 16:00] VITALS: BP 139/59
[2022-03-28 20:00] VITALS: BP 146/63
[2022-03-28] MEDS: INSULIN GLARGINE 100 UNITS/ML SUBCUT SCH (21:50)
[2022-03-29] VITALS (7 sets, daily range): BP systolic 97–136; BP diastolic 20–72
[2022-03-29] MEDS: DEXT 5%/0.9% NACL 1,000 ML IV SCH (00:55)
[2022-03-29] MEDS: MIDODRINE HCL 5MG TABLET PO SCH ×3 (00:55→16:00)
[2022-03-29] MEDS: METOCLOPRAMIDE HCL 5MG TABLET PO SCH ×4 (00:55→18:47)
[2022-03-29] MEDS: BLOOD SUGAR DIAGNOSTIC STRIP TEST SCH ×4 (06:42→21:00)
[2022-03-29] MEDS: CLONIDINE 0.1MG TABLET NG SCH ×3 (06:50→21:38)
[2022-03-29] MEDS: INSULIN LISPRO 100 UNITS/ML SUBCUT SCH ×4 (06:53→21:40)
[2022-03-29 06:56] LABS: BASOPHILS % 0.4 % (0.0-2.0); EOSINOPHILS % 4.1 % (0.0-5.0); HEMATOCRIT. 25.7 % (42.0-52.0); HEMOGLOBIN. 8.5 g/dL (14.0-18.0); LYMPHOCYTES % 25.4 % (20.0-50.0); MEAN CORPUSCULAR HEMOGLOBIN 29.5 pg (28.0-32.0); MEAN CORPUSCULAR VOLUME 89.1 fL (80.0-94.0); MEAN PLATELET VOLUME 8.7 fl (7.4-10.4); MONOCYTES % 7.3 % (2.0-8.0); NEUTROPHILS % 62.8 % (40.0-76.0); PLATELET 168 x1000/uL (130-400); RED BLOOD CELL COUNT 2.88 mill/uL (4.7-6.1); RED CELL DISTRIBUTION WIDTH 17.7 % (11.6-14.6)
[2022-03-29] MEDS: FOLIC ACID/VITAMIN B COMP W-C TABLET PO SCH (12:21)
[2022-03-29] MEDS: DOCUSATE SODIUM SUGAR FREE 100MG/10ML UDC PO SCH (12:21)
[2022-03-29] MEDS: AMLODIPINE 2.5MG TABLET NG SCH (12:22)
[2022-03-29] MEDS: ENOXAPARIN 60MG/0.6ML SYR SUBCUT SCH (12:26)
[2022-03-29] MEDS: LANTHANUM CARBONATE 500MG CHEW TABLET PO SCH ×3 (13:01→18:47)
[2022-03-29] MEDS: PANTOPRAZOLE SODIUM 40 MG/VIAL IV SCH (13:02)
[2022-03-29] MEDS: EPOETIN ALFA-EPBX 4,000 UNIT/ML VIAL SUBCUT SCH (21:38)
[2022-03-29] MEDS: INSULIN GLARGINE 100 UNITS/ML SUBCUT SCH (21:40)
[2022-03-30] VITALS: BP_SYST 144; BP_SYST 98; BP_DIAS 59; BP_DIAS 63
[2022-03-30] MEDS: METOCLOPRAMIDE HCL 5MG TABLET PO SCH ×4 (00:21→18:39)
[2022-03-30] MEDS: ACETAMINOPHEN 650MG/20.3ML UDC PO PRN (02:50)
[2022-03-30 04:00] VITALS: BP 136/58
[2022-03-30] MEDS: CLONIDINE 0.1MG TABLET NG SCH ×3 (06:35→20:55)
[2022-03-30] MEDS: BLOOD SUGAR DIAGNOSTIC STRIP TEST SCH ×4 (06:37→18:39)
[2022-03-30] MEDS: INSULIN LISPRO 100 UNITS/ML SUBCUT SCH ×4 (06:37→21:00)
[2022-03-30 08:00] VITALS: BP 152/69
[2022-03-30] MEDS: MIDODRINE HCL 5MG TABLET PO SCH ×3 (08:00→16:00)
[2022-03-30] MEDS: ENOXAPARIN 60MG/0.6ML SYR SUBCUT SCH (08:48)
[2022-03-30] MEDS: DOCUSATE SODIUM SUGAR FREE 100MG/10ML UDC PO SCH (08:48)
[2022-03-30] MEDS: FOLIC ACID/VITAMIN B COMP W-C TABLET PO SCH (08:49)
[2022-03-30] MEDS: LANTHANUM CARBONATE 500MG CHEW TABLET PO SCH ×3 (08:49→17:34)
[2022-03-30] MEDS: PANTOPRAZOLE SODIUM 40 MG/VIAL IV SCH (08:57)
[2022-03-30] MEDS: AMLODIPINE 2.5MG TABLET NG SCH (09:00)
[2022-03-30 12:00] VITALS: BP 135/56
[2022-03-30 16:00] VITALS: BP_SYST 125; BP_SYST 151; BP_DIAS 60; BP_DIAS 72
[2022-03-30 20:00] VITALS: BP 153/69
[2022-03-30] MEDS: INSULIN GLARGINE 100 UNITS/ML SUBCUT SCH (21:05)
[2022-03-31] VITALS: BP 135/78
[2022-03-31] MEDS: METOCLOPRAMIDE HCL 5MG TABLET PO SCH ×4 (00:21→18:00)
[2022-03-31 04:00] VITALS: BP 157/80
[2022-03-31] MEDS: CLONIDINE 0.1MG TABLET NG SCH ×3 (05:50→22:00)
[2022-03-31] MEDS: INSULIN LISPRO 100 UNITS/ML SUBCUT SCH ×4 (05:50→21:46)
[2022-03-31] MEDS: BLOOD SUGAR DIAGNOSTIC STRIP TEST SCH ×4 (05:50→18:35)
[2022-03-31 08:00] VITALS: BP 134/63
[2022-03-31] MEDS: ENOXAPARIN 60MG/0.6ML SYR SUBCUT SCH (09:57)
[2022-03-31] MEDS: AMLODIPINE 2.5MG TABLET NG SCH (09:58)
[2022-03-31] MEDS: PANTOPRAZOLE SODIUM 40 MG/VIAL IV SCH (09:58)
[2022-03-31] MEDS: LANTHANUM CARBONATE 500MG CHEW TABLET PO SCH ×3 (09:58→18:10)
[2022-03-31] MEDS: DOCUSATE SODIUM SUGAR FREE 100MG/10ML UDC PO SCH (09:58)
[2022-03-31] MEDS: MIDODRINE HCL 5MG TABLET PO SCH ×3 (09:58→16:00)
[2022-03-31] MEDS: FOLIC ACID/VITAMIN B COMP W-C TABLET PO SCH (09:58)
[2022-03-31 12:00] VITALS: BP 135/68
[2022-03-31] MEDS: ACETAMINOPHEN 650MG/20.3ML UDC PO PRN (13:53)
[2022-03-31 16:00] VITALS: BP 134/58
[2022-03-31] MEDS ORDERED: MORPHINE SULFATE 2 MG/ML CPJ (NOT FOR IM USE) IV PRN (19:15)
[2022-03-31 20:00] VITALS: BP 121/51
[2022-03-31] MEDS: EPOETIN ALFA-EPBX 4,000 UNIT/ML VIAL SUBCUT SCH (21:00)
[2022-03-31] MEDS: INSULIN GLARGINE 100 UNITS/ML SUBCUT SCH (22:00)
[2022-03-31] MEDS ORDERED: NALOXONE HCL 0.4MG/ML VIAL IV PRN (23:00)
[2022-04-01] VITALS: BP 118/70
[2022-04-01] MEDS: BLOOD SUGAR DIAGNOSTIC STRIP TEST SCH ×4 (00:27→18:32)
[2022-04-01] MEDS: METOCLOPRAMIDE HCL 5MG TABLET PO SCH ×3 (00:28→14:04)
[2022-04-01 04:00] VITALS: BP 144/63
[2022-04-01] MEDS: CLONIDINE 0.1MG TABLET NG SCH ×2 (06:00→14:42)
[2022-04-01 07:46] LABS: BASOPHILS % 0.4 % (0.0-2.0); EOSINOPHILS % 1.9 % (0.0-5.0); HEMATOCRIT. 26.9 % (42.0-52.0); HEMOGLOBIN. 8.9 g/dL (14.0-18.0); LYMPHOCYTES % 22.8 % (20.0-50.0); MEAN CORPUSCULAR HEMOGLOBIN 29.5 pg (28.0-32.0); MEAN CORPUSCULAR VOLUME 89.1 fL (80.0-94.0); MEAN PLATELET VOLUME 8.9 fl (7.4-10.4); MONOCYTES % 6.4 % (2.0-8.0); NEUTROPHILS % 68.5 % (40.0-76.0); PLATELET 231 x1000/uL (130-400); RED BLOOD CELL COUNT 3.02 mill/uL (4.7-6.1); RED CELL DISTRIBUTION WIDTH 17.9 % (11.6-14.6)
[2022-04-01 08:00] VITALS: BP 158/79
[2022-04-01] MEDS: MIDODRINE HCL 5MG TABLET PO SCH ×3 (08:00→16:00)
[2022-04-01] MEDS: INSULIN LISPRO 100 UNITS/ML SUBCUT SCH ×2 (08:10→13:10)
[2022-04-01] MEDS ORDERED: IOHEXOL-300 50 ML BOTTLE IV ONE (09:39)
[2022-04-01] MEDS ORDERED: LIDOCAINE HCL/PF 1% 10 MG/ML 5ML VIAL ONE (09:39)
[2022-04-01] MEDS: FOLIC ACID/VITAMIN B COMP W-C TABLET PO SCH (09:41)
[2022-04-01] MEDS: LANTHANUM CARBONATE 500MG CHEW TABLET PO SCH ×2 (09:41→13:10)
[2022-04-01] MEDS: AMLODIPINE 2.5MG TABLET NG SCH (09:42)
[2022-04-01] MEDS: PANTOPRAZOLE SODIUM 40 MG/VIAL IV SCH (09:42)
[2022-04-01] MEDS: DOCUSATE SODIUM SUGAR FREE 100MG/10ML UDC PO SCH (09:44)
[2022-04-01] MEDS ORDERED: ONDANSETRON HCL 4MG/2ML INJ ONE (09:54)
[2022-04-01] MEDS ORDERED: SUCCINYLCHOLINE CHLORIDE 200MG/10ML IV ONE (09:54)
[2022-04-01] MEDS ORDERED: DEXAMETHASONE 4MG/ML 1ML VIAL ONE (09:54)
[2022-04-01] MEDS ORDERED: PROPOFOL 200MG/20ML VIAL IV ONE (09:55)
[2022-04-01] MEDS ORDERED: ROCURONIUM BROMIDE 10MG/ML VIAL 5ML IV ONE (09:56)
[2022-04-01] MEDS ORDERED: MIDAZOLAM HCL 2 MG/2 ML VIAL ONE (09:58)
[2022-04-01] MEDS ORDERED: CEFAZOLIN SODIUM 1000MG/VIAL ONE (10:33)
[2022-04-01 12:00] VITALS: BP 159/63
[2022-04-01 16:00] VITALS: BP 143/69
== END 2022-04-01 19:05 | DRG 871 ==
LOC: ER 10:40 → SUPCPDRO 11:26 → MICUSO 22:45 → EDBEDREQTM 22:51 → EDBEDREQ 22:51 → 8WST 03-13 01:16 → 5EST 03-13 01:57 → 7WST 03-13 12:00 → 7EST 03-18 12:35 → 7WST 03-21 18:33
PROVIDERS: ADMIT Internal Medicine Nephrology; ATTEND Internal Medicine Nephrology
PROC: 06HY33Z Insertion of Infusion Device into Lower Vein, Percutaneous Approach (ICD-10-PCS; 2022-03-15)
PROC: 5A1D70Z Performance of Urinary Filtration, Intermittent, Less than 6 Hours Per Day (ICD-10-PCS; 2022-03-15)
PROC: 5A1D70Z Performance of Urinary Filtration, Intermittent, Less than 6 Hours Per Day (ICD-10-PCS; 2022-03-17)
PROC: 5A1D70Z Performance of Urinary Filtration, Intermittent, Less than 6 Hours Per Day (ICD-10-PCS; 2022-03-19)
PROC: 5A1D70Z Performance of Urinary Filtration, Intermittent, Less than 6 Hours Per Day (ICD-10-PCS; 2022-03-22)
PROC: 0DB98ZX Excision of Duodenum, Via Natural or Artificial Opening Endoscopic, Diagnostic (ICD-10-PCS; 2022-03-24)
PROC: 5A1D70Z Performance of Urinary Filtration, Intermittent, Less than 6 Hours Per Day (ICD-10-PCS; 2022-03-25)
PROC: 5A1D70Z Performance of Urinary Filtration, Intermittent, Less than 6 Hours Per Day (ICD-10-PCS; 2022-03-27)
PROC: 0F2BX0Z Change Drainage Device in Hepatobiliary Duct, External Approach (ICD-10-PCS; principal; 2022-04-01)
PROC: BF101ZZ Fluoroscopy of Bile Ducts using Low Osmolar Contrast (ICD-10-PCS; 2022-04-01)
DX: A41.89 Other specified sepsis (principal); E43 Unspecified severe protein-calorie malnutrition; G92.8 Other toxic encephalopathy; U07.1 COVID-19; N17.0 Acute kidney failure with tubular necrosis; K83.1 Obstruction of bile duct; N18.6 End stage renal disease; J96.90 Respiratory failure, unspecified, unspecified whether with hypoxia or hypercapnia; C25.9 Malignant neoplasm of pancreas, unspecified; N39.0 Urinary tract infection, site not specified; I82.402 Acute embolism and thrombosis of unspecified deep veins of left lower extremity; E11.52 Type 2 diabetes mellitus with diabetic peripheral angiopathy with gangrene; E87.20 Acidosis, unspecified; I12.0 Hypertensive chronic kidney disease with stage 5 chronic kidney disease or end stage renal disease; K56.7 Ileus, unspecified; K86.1 Other chronic pancreatitis; R64 Cachexia; K83.09 Other cholangitis; T85.520A Displacement of bile duct prosthesis, initial encounter; Y92.89 Other specified places as the place of occurrence of the external cause; E11.22 Type 2 diabetes mellitus with diabetic chronic kidney disease; Z66 Do not resuscitate; E87.6 Hypokalemia; E78.00 Pure hypercholesterolemia, unspecified; Z20.822 Contact with and (suspected) exposure to COVID-19; E66.9 Obesity, unspecified; I25.10 Atherosclerotic heart disease of native coronary artery without angina pectoris; E88.09 Other disorders of plasma-protein metabolism, not elsewhere classified; D63.1 Anemia in chronic kidney disease; B96.20 Unspecified Escherichia coli [E. coli] as the cause of diseases classified elsewhere; G47.33 Obstructive sleep apnea (adult) (pediatric); I95.9 Hypotension, unspecified; N40.1 Benign prostatic hyperplasia with lower urinary tract symptoms; R13.10 Dysphagia, unspecified; R62.7 Adult failure to thrive; K29.70 Gastritis, unspecified, without bleeding; F03.90 Unspecified dementia, unspecified severity, without behavioral disturbance, psychotic disturbance, mood disturbance, and anxiety; I25.2 Old myocardial infarction; Z86.718 Personal history of other venous thrombosis and embolism; Z74.01 Bed confinement status; Z51.5 Encounter for palliative care; Z78.1 Physical restraint status; Z79.4 Long term (current) use of insulin; Z79.899 Other long term (current) drug therapy; Z85.07 Personal history of malignant neoplasm of pancreas; Z86.73 Personal history of transient ischemic attack (TIA), and cerebral infarction without residual deficits; Z90.49 Acquired absence of other specified parts of digestive tract; Z93.1 Gastrostomy status; Z95.828 Presence of other vascular implants and grafts; Z99.2 Dependence on renal dialysis; Y83.8 Other surgical procedures as the cause of abnormal reaction of the patient, or of later complication, without mention of misadventure at the time of the procedure
CPT/HCPCS: 36415; 36556; 47536; 71045; 74018; 76937; 80048; 80053; 80076; 80202; 81003; 82010; 82607; 82728; 82746; 82962; 83540; 83550; 83735; 84100; 84484; 85025; 85044; 86705; 86709; 86803; 87340; 87426; 88304; 90585; 93005; 93970; 99285; A6261; C1725; C1729; C1752; C1760; C1769; C9113; J0330; J0360; J0690; J0696; J0885; J1100; J1450; J1650; J1815; J2060; J2250; J2270; J2405; J2543; J2704; J3370; J3480; J3490; J7030; J7042; J7060; J7070; J8597; Q9967; U0003; U0005; A4315

== ENCOUNTER 2022-04-09 00:36 | Emergency (ER) | payer MEDICARE, BC, MEDICAID ==
[~2022-04-09] VITALS: Ht 167.6 cm; Wt 72.6 kg
[~2022-04-09 00:36] MED LIST changes: -ALBU6.7H9 INH; -COR12 PO; -DOCU100T PO; -FINA5TAB11 PO; -GABA800T97 PO; -INSU100C6 SQ; -LIDO35.421 TP; -NORT25CA PO; -PANT40TA51 PO; -PSYL575P22 MT; -ROSU20TA2 PO; -SENN-257 PO; -SPIR25TA6 PO; -TORS20TA4 PO
[2022-04-09 06:46] VITALS: BP 102/52
== END 2022-04-09 10:06 ==
LOC: ER 01:02
DX: E78.00 Pure hypercholesterolemia, unspecified (principal); W18.39XA Other fall on same level, initial encounter; Y93.89 Activity, other specified; Y92.89 Other specified places as the place of occurrence of the external cause; Y99.8 Other external cause status; E11.9 Type 2 diabetes mellitus without complications; I10 Essential (primary) hypertension; Z87.01 Personal history of pneumonia (recurrent); Z98.890 Other specified postprocedural states
CPT/HCPCS: 71045; 93005; 99283

== ENCOUNTER 2022-04-14 02:23 | Emergency (ER) | payer MEDICARE, BC, OTHER ==
[~2022-04-14] VITALS: Ht 167.6 cm; Wt 82.0 kg
[2022-04-14 04:33] LABS: BASOPHILS % 0.6 % (0.0-2.0); HEMATOCRIT. 31.8 % (42.0-52.0); HEMOGLOBIN. 10.5 g/dL (14.0-18.0); LYMPHOCYTES % 28.3 % (20.0-50.0); MEAN CORPUSCULAR HEMOGLOBIN 29.7 pg (28.0-32.0); MONOCYTES % 6.4 % (2.0-8.0); NEUTROPHILS % 63.7 % (40.0-76.0); PLATELET 342 x1000/uL (130-400); RED BLOOD CELL COUNT 3.53 mill/uL (4.7-6.1); RED CELL DISTRIBUTION WIDTH 18.7 % (11.6-14.6)
[2022-04-14 06:13] LABS: INR 1.1; PROTHROMBIN TIME 11.3 sec (9.6-11.0)
[2022-04-14] MEDS ORDERED: LORAZEPAM 2MG/ML CPJ IV PRN (07:30)
[2022-04-14] MEDS ORDERED: LIDOCAINE HCL 1% 10 MG/ML 10ML VIAL ONE (08:00)
[2022-04-14] MEDS ORDERED: HEPARIN 1000 UNITS/ML 10ML ONE ×2 (08:01→10:44)
[2022-04-14] MEDS ORDERED: IOHEXOL-300 50 ML BOTTLE IV ONE (10:43)
[2022-04-14] MEDS ORDERED: LIDOCAINE HCL/PF 1% 10 MG/ML 5ML VIAL ONE (10:44)
[2022-04-14 12:19] LABS: CHLORIDE 89 mEq/L (98-107)
[2022-04-14] MEDS ORDERED: POTASSIUM CHLORIDE 20MEQ TABLET SR PO ONE (12:45)
[2022-04-14 16:48] VITALS: BP 168/62
== END 2022-04-14 17:04 | disposition home or self-care (01) ==
LOC: ER 02:51 → CANBEDREQ 04-15 12:35
DX: T82.42XA Displacement of vascular dialysis catheter, initial encounter (principal); Y84.1 Kidney dialysis as the cause of abnormal reaction of the patient, or of later complication, without mention of misadventure at the time of the procedure; Y92.89 Other specified places as the place of occurrence of the external cause; I49.8 Other specified cardiac arrhythmias; Z20.822 Contact with and (suspected) exposure to COVID-19; I12.0 Hypertensive chronic kidney disease with stage 5 chronic kidney disease or end stage renal disease; E11.22 Type 2 diabetes mellitus with diabetic chronic kidney disease; N18.6 End stage renal disease; Z99.2 Dependence on renal dialysis; Z79.4 Long term (current) use of insulin; Z86.73 Personal history of transient ischemic attack (TIA), and cerebral infarction without residual deficits; Z87.19 Personal history of other diseases of the digestive system
CPT/HCPCS: 36415; 36556; 76937; 77001; 80053; 85025; 85610; 86850; 86900; 86901; 87426; 93005; 99291; C1752; C1887; C9803; J1644; J3490; Q9967

== ENCOUNTER 2022-04-22 13:00 | Emergency (ER) | payer MEDICARE, BC, OTHER ==
[~2022-04-22] VITALS: Ht 175.3 cm; Wt 77.0 kg
[2022-04-22] MEDS ORDERED: PIPERACILLIN/TAZ 3.375G PREMIX 50 ML IV ONE (13:30)
[2022-04-22] MEDS ORDERED: VANCOMYCIN 1G PREMIX 200 ML IV ONE (13:30)
[2022-04-22] MEDS ORDERED: LACTULOSE 20G/30ML UDC PO NR (13:30)
[2022-04-22] MEDS ORDERED: NA PHOS,M-B/NA PHOS,DI-BA ENEMA 118ML PR NR (13:30)
[2022-04-22] MEDS ORDERED: LIDOCAINE HCL/PF 1% 10 MG/ML 5ML VIAL ONE (13:47)
[2022-04-22 14:55] LABS: BASOPHILS % 0.2 % (0.0-2.0); EOSINOPHILS % 0.1 % (0.0-5.0); HEMATOCRIT. 23.1 % (42.0-52.0); HEMOGLOBIN. 7.8 g/dL (14.0-18.0); LYMPHOCYTES % 16.6 % (20.0-50.0); MEAN CORPUSCULAR HEMOGLOBIN 30.1 pg (28.0-32.0); MEAN CORPUSCULAR VOLUME 89.6 fL (80.0-94.0); MEAN PLATELET VOLUME 8.2 fl (7.4-10.4); MONOCYTES % 8.1 % (2.0-8.0); PLATELET 256 x1000/uL (130-400); RED BLOOD CELL COUNT 2.58 mill/uL (4.7-6.1); RED CELL DISTRIBUTION WIDTH 17.1 % (11.6-14.6)
[2022-04-22 15:05] LABS: CHLORIDE 86 mEq/L (98-107)
[2022-04-22 15:28] LABS: PARTIAL THROMBOPLASTIN TIME 31.9 sec (23.4-31.0); PROTHROMBIN TIME 11.1 sec (9.6-11.0)
[2022-04-22] MEDS ORDERED: POTASSIUM CHLORIDE 20MEQ TABLET SR PO ONE (15:45)
[2022-04-23 09:47] VITALS: BP 145/69
== END 2022-04-23 10:24 | disposition home or self-care (01) ==
LOC: ER 13:00
DX: I12.0 Hypertensive chronic kidney disease with stage 5 chronic kidney disease or end stage renal disease (principal); E11.22 Type 2 diabetes mellitus with diabetic chronic kidney disease; N18.6 End stage renal disease; Z99.2 Dependence on renal dialysis; Z85.9 Personal history of malignant neoplasm, unspecified; Z86.73 Personal history of transient ischemic attack (TIA), and cerebral infarction without residual deficits; E87.6 Hypokalemia
CPT/HCPCS: 36415; 36556; 71045; 76937; 80053; 83605; 83690; 83880; 84484; 85025; 85610; 85730; 87040; 93005; 99285; C1752; J3490

== ENCOUNTER 2022-04-30 10:03 | Inpatient (IN) | payer MEDICARE, BC, OTHER ==
[~2022-04-30] VITALS: Ht 167.6 cm; Wt 56.0 kg
[2022-04-30] MEDS ORDERED: SODIUM CHLORIDE 0.9% 1000ML BAG (SEPSIS BOLUS) IV ONE (10:30)
[2022-04-30] MEDS ORDERED: VANCOMYCIN 1G PREMIX 200 ML IV ONE (10:30)
[2022-04-30] MEDS ORDERED: PIPERACILLIN/TAZ 3.375G PREMIX 50 ML IV ONE (10:30)
[2022-04-30] MEDS ORDERED: ONDANSETRON HCL 4MG/2ML INJ IV PRN (11:45)
[2022-04-30] MEDS ORDERED: ACETAMINOPHEN 325MG TABLET GT PRN (11:45)
[2022-04-30 11:58] LABS: HEMATOCRIT. 24.2 % (42.0-52.0); HEMOGLOBIN. 7.8 g/dL (14.0-18.0); MEAN CORPUSCULAR HEMOGLOBIN 29.1 pg (28.0-32.0); MEAN CORPUSCULAR VOLUME 90.5 fL (80.0-94.0); MEAN PLATELET VOLUME 7.8 fl (7.4-10.4); PLATELET 293 x1000/uL (130-400); RED BLOOD CELL COUNT 2.67 mill/uL (4.7-6.1); RED CELL DISTRIBUTION WIDTH 17.7 % (11.6-14.6)
[2022-04-30 12:09] LABS: PROTHROMBIN TIME 11.1 sec (9.6-11.0)
[2022-04-30] MEDS ORDERED: VANCOMYCIN 1G PREMIX 200 ML IV NR (13:45)
[2022-04-30 13:53] LABS: CHLORIDE 83 mEq/L (98-107)
[2022-04-30] MEDS ORDERED: VANCOMYCIN 1,000 MG in DEXT 5% WATER 250 ML IV NR (14:00)
[2022-04-30] MEDS ORDERED: KCL 20MEQ/100ML PREMIX 100 ML IV ONE (14:30)
[2022-04-30 16:54] LABS: HEPATITIS B SURFACE ANTIGEN NEGATIVE
[2022-04-30] MEDS: BLOOD SUGAR DIAGNOSTIC STRIP TEST SCH ×2 (17:33→21:09)
[2022-04-30] MEDS: INSULIN LISPRO 100 UNITS/ML SUBCUT SCH ×2 (17:39→21:07)
[2022-04-30] MEDS: METOCLOPRAMIDE HCL 10MG/2ML VIAL IV SCH (17:39)
[2022-04-30] MEDS ORDERED: POTASSIUM CHLORIDE 20MEQ/PACKET GT NR (19:45)
[2022-04-30 20:00] VITALS: BP 135/63
[2022-04-30] MEDS: INSULIN GLARGINE 100 UNITS/ML SUBCUT SCH (21:06)
[2022-04-30] MEDS: PIPERACILLIN/TAZOBACTAM 3.375 G in DEXTROSE 5% WATER 50 ML IV SCH (21:09)
[2022-04-30] MEDS ORDERED: PIPERACILLIN/TAZOBACTAM 3.375 G in DEXTROSE 5% WATER 50 ML IV SCH (22:00)
[2022-05-01] VITALS (12 sets, daily range): BP systolic 102–180; BP diastolic 52–87
[2022-05-01] MEDS: METOCLOPRAMIDE HCL 10MG/2ML VIAL IV SCH ×4 (00:02→18:00)
[2022-05-01] MEDS: BLOOD SUGAR DIAGNOSTIC STRIP TEST SCH ×4 (06:09→21:32)
[2022-05-01] MEDS: DEXTROSE 50% WATER 50ML SYRINGE IV PRN ×2 (06:09→14:23)
[2022-05-01] MEDS: INSULIN LISPRO 100 UNITS/ML SUBCUT SCH ×4 (07:10→21:00)
[2022-05-01 07:52] LABS: PLATELET ESTIMATE NORMAL
[2022-05-01 09:02] LABS: BASOPHILS % 0.1 % (0.0-2.0); EOSINOPHILS % 0.2 % (0.0-5.0); HEMATOCRIT. 22.8 % (42.0-52.0); HEMOGLOBIN. 7.5 g/dL (14.0-18.0); LYMPHOCYTES % 9.2 % (20.0-50.0); MEAN CORPUSCULAR HEMOGLOBIN 29.3 pg (28.0-32.0); MEAN CORPUSCULAR VOLUME 88.6 fL (80.0-94.0); MONOCYTES % 7.7 % (2.0-8.0); NEUTROPHILS % 82.8 % (40.0-76.0); PLATELET 314 x1000/uL (130-400); RED BLOOD CELL COUNT 2.57 mill/uL (4.7-6.1); RED CELL DISTRIBUTION WIDTH 17.1 % (11.6-14.6)
[2022-05-01 09:13] LABS: INR 1.1; PROTHROMBIN TIME 11.4 sec (9.6-11.0)
[2022-05-01 09:34] LABS: CHLORIDE 88 mEq/L (98-107)
[2022-05-01] MEDS: PIPERACILLIN/TAZOBACTAM 3.375 G in DEXTROSE 5% WATER 50 ML IV SCH ×2 (10:12→21:32)
[2022-05-01] MEDS ORDERED: POTASSIUM CHLORIDE 20MEQ/PACKET PO NR ×2 (11:45)
[2022-05-01] MEDS ORDERED: VANCOMYCIN 500MG PREMIX 100 ML IV SCH (17:00)
[2022-05-01] MEDS ORDERED: TRAMADOL 50MG TABLET PO PRN (17:30)
[2022-05-01] MEDS ORDERED: NALOXONE HCL 0.4MG/ML VIAL IV PRN (17:45)
[2022-05-01] MEDS: MORPHINE SULFATE 4 MG/ML CPJ (NOT FOR IM USE) IV PRN (19:48)
[2022-05-01] MEDS: INSULIN GLARGINE 100 UNITS/ML SUBCUT SCH (21:32)
[2022-05-02] VITALS (7 sets, daily range): BP systolic 127–155; BP diastolic 61–72
[2022-05-02] MEDS: METOCLOPRAMIDE HCL 10MG/2ML VIAL IV SCH ×5 (00:43→23:33)
[2022-05-02 01:44] LABS: PHOSPHORUS 4.3 mg/dL (2.5-4.9)
[2022-05-02] MEDS: BLOOD SUGAR DIAGNOSTIC STRIP TEST SCH ×4 (06:03→20:15)
[2022-05-02] MEDS: INSULIN LISPRO 100 UNITS/ML SUBCUT SCH ×4 (06:27→20:15)
[2022-05-02 07:47] LABS: BASOPHILS % 0.2 % (0.0-2.0); EOSINOPHILS % 0.2 % (0.0-5.0); HEMOGLOBIN. 8.1 g/dL (14.0-18.0); LYMPHOCYTES % 12.6 % (20.0-50.0); MEAN CORPUSCULAR HEMOGLOBIN 29.7 pg (28.0-32.0); MEAN CORPUSCULAR VOLUME 92.2 fL (80.0-94.0); MEAN PLATELET VOLUME 7.7 fl (7.4-10.4); MONOCYTES % 6.8 % (2.0-8.0); NEUTROPHILS % 80.2 % (40.0-76.0); PLATELET 277 x1000/uL (130-400); RED BLOOD CELL COUNT 2.71 mill/uL (4.7-6.1); RED CELL DISTRIBUTION WIDTH 17.7 % (11.6-14.6)
[2022-05-02] MEDS: PIPERACILLIN/TAZOBACTAM 3.375 G in DEXTROSE 5% WATER 50 ML IV SCH ×2 (08:47→21:13)
[2022-05-02] MEDS: MORPHINE SULFATE 4 MG/ML CPJ (NOT FOR IM USE) IV PRN ×2 (08:47→22:33)
[2022-05-02 08:53] LABS: CHLORIDE 96 mEq/L (98-107)
[2022-05-02] MEDS ORDERED: VANCOMYCIN 1,000 MG in DEXT 5% WATER 250 ML IV SCH (14:00)
[2022-05-02] MEDS: INSULIN GLARGINE 100 UNITS/ML SUBCUT SCH (21:13)
[2022-05-03] VITALS (19 sets, daily range): BP systolic 120–154; BP diastolic 53–76
[2022-05-03] MEDS: METOCLOPRAMIDE HCL 10MG/2ML VIAL IV SCH ×3 (05:33→17:11)
[2022-05-03] MEDS: INSULIN LISPRO 100 UNITS/ML SUBCUT SCH ×4 (05:51→22:01)
[2022-05-03] MEDS: BLOOD SUGAR DIAGNOSTIC STRIP TEST SCH ×4 (05:51→21:52)
[2022-05-03] MEDS ORDERED: LIDOCAINE HCL/PF 1% 10 MG/ML 5ML VIAL ONE (07:21)
[2022-05-03] MEDS ORDERED: FENTANYL CITRATE/PF 50MCG/ML 2ML VIAL ONE (07:21)
[2022-05-03] MEDS ORDERED: IOHEXOL-300 50 ML BOTTLE IV ONE (07:21)
[2022-05-03] MEDS ORDERED: MIDAZOLAM HCL 2 MG/2 ML VIAL ONE (07:21)
[2022-05-03] MEDS: PIPERACILLIN/TAZOBACTAM 3.375 G in DEXTROSE 5% WATER 50 ML IV SCH ×2 (08:11→21:59)
[2022-05-03] MEDS ORDERED: MIDAZOLAM HCL 5 MG/5 ML VIAL IV ONE (08:30)
[2022-05-03] MEDS ORDERED: FENTANYL CITRATE/PF 50MCG/ML 2ML VIAL IV ONE (08:30)
[2022-05-03] MEDS ORDERED: ENOXAPARIN 30MG/0.3ML SYR SUBCUT SCH (11:00)
[2022-05-03] MEDS: INSULIN GLARGINE 100 UNITS/ML SUBCUT SCH (22:01)
[2022-05-04] VITALS (16 sets, daily range): BP systolic 92–158; BP diastolic 44–75
[2022-05-04] MEDS: METOCLOPRAMIDE HCL 10MG/2ML VIAL IV SCH ×4 (00:29→17:36)
[2022-05-04] MEDS: BLOOD SUGAR DIAGNOSTIC STRIP TEST SCH ×3 (05:55→17:34)
[2022-05-04] MEDS: INSULIN LISPRO 100 UNITS/ML SUBCUT SCH ×3 (05:55→17:34)
[2022-05-04] MEDS: PIPERACILLIN/TAZOBACTAM 3.375 G in DEXTROSE 5% WATER 50 ML IV SCH ×2 (09:09→22:15)
[2022-05-04] MEDS: POLYETHYLENE GLYCOL 3350 (17GM) 1 DOSE PACK PEG SCH (16:49)
[2022-05-04] MEDS: INSULIN GLARGINE 100 UNITS/ML SUBCUT SCH (21:45)
[2022-05-05] VITALS: BP 145/62
[2022-05-05] MEDS: INSULIN LISPRO 100 UNITS/ML SUBCUT SCH ×3 (00:13→11:57)
[2022-05-05 04:00] VITALS: BP 147/65
[2022-05-05] MEDS: BLOOD SUGAR DIAGNOSTIC STRIP TEST SCH ×3 (05:40→11:56)
[2022-05-05] MEDS: METOCLOPRAMIDE HCL 10MG/2ML VIAL IV SCH ×3 (05:45→11:56)
[2022-05-05 08:00] VITALS: BP 136/68
[2022-05-05] MEDS: PIPERACILLIN/TAZOBACTAM 3.375 G in DEXTROSE 5% WATER 50 ML IV SCH (08:34)
[2022-05-05] MEDS: POLYETHYLENE GLYCOL 3350 (17GM) 1 DOSE PACK PEG SCH (08:34)
[2022-05-05 10:28] LABS: BASOPHILS % 0.3 % (0.0-2.0); EOSINOPHILS % 0.4 % (0.0-5.0); HEMATOCRIT. 26.9 % (42.0-52.0); HEMOGLOBIN. 8.6 g/dL (14.0-18.0); LYMPHOCYTES % 22.2 % (20.0-50.0); MEAN CORPUSCULAR VOLUME 90.3 fL (80.0-94.0); MEAN PLATELET VOLUME 7.5 fl (7.4-10.4); MONOCYTES % 7.4 % (2.0-8.0); NEUTROPHILS % 69.7 % (40.0-76.0); PLATELET 433 x1000/uL (130-400); RED BLOOD CELL COUNT 2.98 mill/uL (4.7-6.1); RED CELL DISTRIBUTION WIDTH 17.1 % (11.6-14.6)
[2022-05-05 12:00] VITALS: BP 139/54
[2022-05-05] MEDS ORDERED: VANCOMYCIN 750MG PREMIX 150 ML IV NR (14:00)
[2022-05-05 14:11] LABS: INR 1.1; PROTHROMBIN TIME 11.7 sec (9.6-11.0)
[2022-05-05 15:49] VITALS: BP 139/54
== END 2022-05-05 17:04 | disposition home or self-care (01) | DRG 314 ==
LOC: ER 10:03 → 7EST 13:42 → EDBEDREQ 13:49 → EDBEDREQTM 13:49
PROVIDERS: ADMIT Internal Medicine Nephrology; ATTEND Internal Medicine Nephrology
PROC: 5A1D70Z Performance of Urinary Filtration, Intermittent, Less than 6 Hours Per Day (ICD-10-PCS; 2022-05-01)
PROC: 0F2BX0Z Change Drainage Device in Hepatobiliary Duct, External Approach (ICD-10-PCS; principal; 2022-05-03)
PROC: BF101ZZ Fluoroscopy of Bile Ducts using Low Osmolar Contrast (ICD-10-PCS; 2022-05-03)
PROC: 5A1D70Z Performance of Urinary Filtration, Intermittent, Less than 6 Hours Per Day (ICD-10-PCS; 2022-05-04)
DX: T80.211A Bloodstream infection due to central venous catheter, initial encounter (principal); A41.9 Sepsis, unspecified organism; E43 Unspecified severe protein-calorie malnutrition; K83.1 Obstruction of bile duct; N18.6 End stage renal disease; C25.9 Malignant neoplasm of pancreas, unspecified; G93.40 Encephalopathy, unspecified; I12.0 Hypertensive chronic kidney disease with stage 5 chronic kidney disease or end stage renal disease; I82.412 Acute embolism and thrombosis of left femoral vein; Z68.1 Body mass index [BMI] 19.9 or less, adult; N39.0 Urinary tract infection, site not specified; K83.09 Other cholangitis; T85.590A Other mechanical complication of bile duct prosthesis, initial encounter; Z66 Do not resuscitate; D64.9 Anemia, unspecified; E11.22 Type 2 diabetes mellitus with diabetic chronic kidney disease; R29.6 Repeated falls; I99.8 Other disorder of circulatory system; N40.0 Benign prostatic hyperplasia without lower urinary tract symptoms; F03.90 Unspecified dementia, unspecified severity, without behavioral disturbance, psychotic disturbance, mood disturbance, and anxiety; E11.51 Type 2 diabetes mellitus with diabetic peripheral angiopathy without gangrene; E11.649 Type 2 diabetes mellitus with hypoglycemia without coma; Y84.8 Other medical procedures as the cause of abnormal reaction of the patient, or of later complication, without mention of misadventure at the time of the procedure; F94.0 Selective mutism; E87.6 Hypokalemia; I25.2 Old myocardial infarction; Z86.73 Personal history of transient ischemic attack (TIA), and cerebral infarction without residual deficits; Z86.718 Personal history of other venous thrombosis and embolism; Z99.2 Dependence on renal dialysis; Z98.84 Bariatric surgery status; Z90.49 Acquired absence of other specified parts of digestive tract; Z86.16 Personal history of COVID-19; Y92.89 Other specified places as the place of occurrence of the external cause; Z93.1 Gastrostomy status
CPT/HCPCS: 36415; 47536; 71045; 74176; 80048; 80053; 80202; 82962; 83605; 83735; 83880; 84100; 84145; 84484; 85025; 86705; 86709; 86803; 86850; 86900; 87340; 87426; 90935; 93005; 93970; 99152; 99153; 99291; C1769; J1650; J1815; J2250; J2270; J2405; J2543; J2765; J3010; J3370; J3480; J3490; J7030; J7060; Q9967; G0500

== ENCOUNTER 2022-08-10 05:54 | Emergency (ER) | payer MEDICARE, BC, OTHER ==
[~2022-08-10] VITALS: Ht 170.2 cm; Wt 75.0 kg
[2022-08-10 08:27] LABS: CHLORIDE 90 mEq/L (98-107)
[2022-08-10 08:29] LABS: INR 1.1; PROTHROMBIN TIME 11.9 sec (9.6-11.0)
[2022-08-10 08:34] LABS: EOSINOPHILS % 0.3 % (0.0-5.0); HEMATOCRIT. 32.1 % (42.0-52.0); HEMOGLOBIN. 9.6 g/dL (14.0-18.0); LYMPHOCYTES % 10.7 % (20.0-50.0); MEAN CORPUSCULAR HEMOGLOBIN 25.4 pg (28.0-32.0); MEAN CORPUSCULAR VOLUME 84.6 fL (80.0-94.0); MONOCYTES % 7.1 % (2.0-8.0); NEUTROPHILS % 81.9 % (40.0-76.0); RED BLOOD CELL COUNT 3.79 mill/uL (4.7-6.1); RED CELL DISTRIBUTION WIDTH 18.5 % (11.6-14.6)
[2022-08-10 09:55] LABS: PLATELET 264 x1000/uL (130-400)
[2022-08-10] MEDS ORDERED: LIDOCAINE HCL 1% 10 MG/ML 10ML VIAL ONE (10:38)
[2022-08-10] MEDS ORDERED: IOHEXOL-300 50 ML BOTTLE IV ONE ×2 (10:38)
[2022-08-10] MEDS ORDERED: FENTANYL CITRATE/PF 50MCG/ML 2ML VIAL ONE (10:44)
[2022-08-10] MEDS ORDERED: PROPOFOL 200MG/20ML VIAL IV ONE (10:44)
[2022-08-10] MEDS ORDERED: MIDAZOLAM HCL 2 MG/2 ML VIAL ONE (10:45)
[2022-08-10 13:15] VITALS: BP 128/63
== END 2022-08-10 15:30 | disposition home or self-care (01) ==
LOC: ER 05:54
DX: T85.520A Displacement of bile duct prosthesis, initial encounter (principal); X58.XXXA Exposure to other specified factors, initial encounter; Z85.9 Personal history of malignant neoplasm, unspecified; F03.90 Unspecified dementia, unspecified severity, without behavioral disturbance, psychotic disturbance, mood disturbance, and anxiety; I12.0 Hypertensive chronic kidney disease with stage 5 chronic kidney disease or end stage renal disease; E11.22 Type 2 diabetes mellitus with diabetic chronic kidney disease; N18.6 End stage renal disease; Z99.2 Dependence on renal dialysis; Z20.822 Contact with and (suspected) exposure to COVID-19
CPT/HCPCS: 36415; 47536; 80053; 85025; 85610; 86850; 86900; 86901; 87426; 93005; 99284; C1725; C1729; C1760; C1769; C1893; C9803; J2250; J3010; J3490; Q9967; J2704

== ENCOUNTER 2022-10-01 18:35 | Inpatient (IN) | payer MEDICARE, BC, MEDICAID ==
[~2022-10-01] VITALS: Ht 177.8 cm; Wt 45.8 kg
[~2022-10-01 18:35] MED LIST changes: +TAMS-11 GT; -TAMS-11 PO
[2022-10-01] MEDS ORDERED: LORAZEPAM 2MG/ML CPJ IM ONE (19:45)
[2022-10-01 21:11] LABS: CHLORIDE 95 mEq/L (98-107)
[2022-10-01 21:44] LABS: INR 1.1; PROTHROMBIN TIME 11.6 sec (9.6-11.0)
[2022-10-01 21:46] LABS: BASOPHILS % 0.1 % (0.0-2.0); EOSINOPHILS % 0.2 % (0.0-5.0); HEMATOCRIT. 38.2 % (42.0-52.0); HEMOGLOBIN. 11.5 g/dL (14.0-18.0); LYMPHOCYTES % 9.1 % (20.0-50.0); MEAN CORPUSCULAR HEMOGLOBIN 23.3 pg (28.0-32.0); MEAN CORPUSCULAR VOLUME 77.2 fL (80.0-94.0); MEAN PLATELET VOLUME 8.6 fl (7.4-10.4); NEUTROPHILS % 86.6 % (40.0-76.0); PLATELET 218 x1000/uL (130-400); RED BLOOD CELL COUNT 4.95 mill/uL (4.7-6.1); RED CELL DISTRIBUTION WIDTH 20.2 % (11.6-14.6)
[2022-10-01] MEDS ORDERED: CEFEPIME 1,000 MG in DEXTROSE 5% WATER 50 ML IV STA (22:04)
[2022-10-01] MEDS ORDERED: VANCOMYCIN 1G PREMIX 200 ML IV STA (22:04)
[2022-10-02] VITALS (11 sets, daily range): BP systolic 101–134; BP diastolic 60–82
[2022-10-02] MEDS ORDERED: AMLO2.5T45 GT (01:46)
[2022-10-02] MEDS ORDERED: APIX2.5T GT (01:46)
[2022-10-02] MEDS ORDERED: ZINC50TA15 GT (01:46)
[2022-10-02] MEDS ORDERED: FOLI0.8T23 GT (01:46)
[2022-10-02] MEDS ORDERED: ATOR20TA65 GT (01:49)
[2022-10-02] MEDS ORDERED: LOSA50TA41 GT (01:49)
[2022-10-02] MEDS ORDERED: ACETAMINOPHEN 325MG TABLET GT PRN (06:00)
[2022-10-02] MEDS ORDERED: CLONIDINE 0.1MG TABLET GT PRN (06:00)
[2022-10-02] MEDS: DEXT 5%/0.9% NACL 1,000 ML IV SCH (06:30)
[2022-10-02] MEDS: BLOOD SUGAR DIAGNOSTIC STRIP TEST SCH ×4 (06:36→21:00)
[2022-10-02] MEDS: INSULIN LISPRO 100 UNITS/ML SUBCUT SCH ×4 (06:38→21:00)
[2022-10-02] MEDS ORDERED: ONDANSETRON HCL 4MG/2ML INJ IV PRN (08:45)
[2022-10-02] MEDS ORDERED: ACETAMINOPHEN 650MG/20.3ML UDC GT PRN (08:45)
[2022-10-02] MEDS ORDERED: NALOXONE HCL 0.4MG/ML VIAL IV PRN (09:00)
[2022-10-02 11:19] LABS: BASOPHILS % 0.1 % (0.0-2.0); EOSINOPHILS % 0.5 % (0.0-5.0); HEMATOCRIT. 31.1 % (42.0-52.0); HEMOGLOBIN. 9.8 g/dL (14.0-18.0); LYMPHOCYTES % 7.9 % (20.0-50.0); MEAN CORPUSCULAR HEMOGLOBIN 23.5 pg (28.0-32.0); MEAN CORPUSCULAR VOLUME 74.7 fL (80.0-94.0); MEAN PLATELET VOLUME 8.2 fl (7.4-10.4); MONOCYTES % 4.4 % (2.0-8.0); NEUTROPHILS % 87.1 % (40.0-76.0); PLATELET 230 x1000/uL (130-400); RED BLOOD CELL COUNT 4.16 mill/uL (4.7-6.1); RED CELL DISTRIBUTION WIDTH 19.5 % (11.6-14.6)
[2022-10-02 14:17] LABS: HEPATITIS B SURFACE ANTIGEN NEGATIVE
[2022-10-02] MEDS ORDERED: VANCOMYCIN 750MG PREMIX 150 ML IV NR (18:00)
[2022-10-02] MEDS ORDERED: PIPERACILLIN/TAZOBACTAM 3.375GM/50ML PREMIX IV SCH (18:00)
[2022-10-02] MEDS: PIPERACILLIN/TAZOBACTAM 3.375 G in DEXTROSE 5% WATER 50 ML IV SCH (21:07)
[2022-10-03 00:05] VITALS: BP 132/65
[2022-10-03] MEDS: MORPHINE SULFATE 2 MG/ML CPJ (NOT FOR IM USE) IV PRN ×2 (00:40→12:00)
[2022-10-03 04:00] VITALS: BP 110/59
[2022-10-03] MEDS: DEXT 5%/0.9% NACL 1,000 ML IV SCH (05:29)
[2022-10-03] MEDS: BLOOD SUGAR DIAGNOSTIC STRIP TEST SCH ×5 (05:29→20:56)
[2022-10-03] MEDS: INSULIN LISPRO 100 UNITS/ML SUBCUT SCH ×4 (05:30→21:00)
[2022-10-03 05:54] LABS: BASOPHILS % 0.2 % (0.0-2.0); EOSINOPHILS % 0.6 % (0.0-5.0); HEMATOCRIT. 31.2 % (42.0-52.0); HEMOGLOBIN. 9.8 g/dL (14.0-18.0); LYMPHOCYTES % 14.2 % (20.0-50.0); MEAN CORPUSCULAR HEMOGLOBIN 23.9 pg (28.0-32.0); MEAN CORPUSCULAR VOLUME 76.4 fL (80.0-94.0); MEAN PLATELET VOLUME 8.5 fl (7.4-10.4); MONOCYTES % 4.7 % (2.0-8.0); NEUTROPHILS % 80.3 % (40.0-76.0); PLATELET 227 x1000/uL (130-400); RED BLOOD CELL COUNT 4.08 mill/uL (4.7-6.1); RED CELL DISTRIBUTION WIDTH 19.8 % (11.6-14.6)
[2022-10-03 06:06] LABS: CHLORIDE 94 mEq/L (98-107)
[2022-10-03 08:00] VITALS: BP 121/70
[2022-10-03] MEDS: PIPERACILLIN/TAZOBACTAM 3.375 G in DEXTROSE 5% WATER 50 ML IV SCH ×2 (08:57→20:56)
[2022-10-03] MEDS ORDERED: POTASSIUM CHLORIDE 20MEQ/PACKET PO NR (09:05)
[2022-10-03 12:00] VITALS: BP 103/61
[2022-10-03 16:00] VITALS: BP 112/58
[2022-10-03] MEDS: DEXTROSE 50% WATER 50ML SYRINGE IV PRN ×2 (16:03→18:59)
[2022-10-03] MEDS ORDERED: DEXTROSE 50% WATER 50ML SYRINGE IV PRN (17:00)
[2022-10-03] MEDS ORDERED: DEXT 10% WATER 1,000 ML IV SCH (17:00)
[2022-10-03 20:00] VITALS: BP 114/59
[2022-10-04 00:01] VITALS: BP 103/49
[2022-10-04 04:00] VITALS: BP 115/59
[2022-10-04 05:11] LABS: BASOPHILS % 0.2 % (0.0-2.0); EOSINOPHILS % 0.4 % (0.0-5.0); HEMATOCRIT. 28.3 % (42.0-52.0); HEMOGLOBIN. 8.6 g/dL (14.0-18.0); LYMPHOCYTES % 11.7 % (20.0-50.0); MEAN CORPUSCULAR HEMOGLOBIN 23.4 pg (28.0-32.0); MEAN CORPUSCULAR VOLUME 76.8 fL (80.0-94.0); MONOCYTES % 5.1 % (2.0-8.0); NEUTROPHILS % 82.6 % (40.0-76.0); PLATELET 220 x1000/uL (130-400); RED BLOOD CELL COUNT 3.68 mill/uL (4.7-6.1); RED CELL DISTRIBUTION WIDTH 19.8 % (11.6-14.6)
[2022-10-04] MEDS: BLOOD SUGAR DIAGNOSTIC STRIP TEST SCH ×4 (05:31→21:44)
[2022-10-04] MEDS: INSULIN LISPRO 100 UNITS/ML SUBCUT SCH ×4 (05:35→22:05)
[2022-10-04] MEDS: DEXT 5%/0.9% NACL 1,000 ML IV SCH (06:00)
[2022-10-04 08:00] VITALS: BP 112/64
[2022-10-04] MEDS: PIPERACILLIN/TAZOBACTAM 3.375 G in DEXTROSE 5% WATER 50 ML IV SCH ×2 (08:15→22:03)
[2022-10-04] MEDS ORDERED: IOHEXOL-300 50 ML BOTTLE IV ONE (09:34)
[2022-10-04] MEDS ORDERED: LIDOCAINE HCL 1% 10 MG/ML 10ML VIAL ONE (09:34)
[2022-10-04] MEDS ORDERED: PROPOFOL 200MG/20ML VIAL IV ONE (10:18)
[2022-10-04] MEDS ORDERED: FENTANYL CITRATE/PF 50MCG/ML 2ML VIAL ONE (11:14)
[2022-10-04] MEDS ORDERED: ETOMIDATE 2MG/ML 10ML VIAL IV ONE (11:14)
[2022-10-04] MEDS ORDERED: SUCCINYLCHOLINE CHLORIDE 200MG/10ML IV ONE (11:14)
[2022-10-04] MEDS ORDERED: ONDANSETRON HCL 4MG/2ML INJ ONE (11:14)
[2022-10-04] MEDS ORDERED: DEXAMETHASONE 4MG/ML 1ML VIAL ONE (11:14)
[2022-10-04] MEDS ORDERED: DEXT 10% WATER 1,000 ML IV SCH (11:45)
[2022-10-04] MEDS ORDERED: FENTANYL CITRATE/PF 50MCG/ML 2ML VIAL IV PRN (12:15)
[2022-10-04 16:00] VITALS: BP 126/63
[2022-10-04 20:00] VITALS: BP 120/71
[2022-10-05] VITALS (13 sets, daily range): BP systolic 90–148; BP diastolic 58–79
[2022-10-05 05:38] LABS: HEMATOCRIT. 35.8 % (42.0-52.0); HEMOGLOBIN. 10.8 g/dL (14.0-18.0); LYMPHOCYTES % 15.3 % (20.0-50.0); MEAN CORPUSCULAR HEMOGLOBIN 23.8 pg (28.0-32.0); MEAN CORPUSCULAR VOLUME 78.5 fL (80.0-94.0); MEAN PLATELET VOLUME 8.7 fl (7.4-10.4); MONOCYTES % 5.6 % (2.0-8.0); NEUTROPHILS % 79.1 % (40.0-76.0); PLATELET 260 x1000/uL (130-400); RED BLOOD CELL COUNT 4.56 mill/uL (4.7-6.1); RED CELL DISTRIBUTION WIDTH 20.7 % (11.6-14.6)
[2022-10-05] MEDS: BLOOD SUGAR DIAGNOSTIC STRIP TEST SCH ×2 (07:26→13:24)
[2022-10-05] MEDS: INSULIN LISPRO 100 UNITS/ML SUBCUT SCH ×2 (07:26→11:58)
[2022-10-05] MEDS: PIPERACILLIN/TAZOBACTAM 3.375 G in DEXTROSE 5% WATER 50 ML IV SCH (08:51)
[2022-10-05] MEDS: MORPHINE SULFATE 2 MG/ML CPJ (NOT FOR IM USE) IV PRN (11:48)
== END 2022-10-05 14:40 | disposition home or self-care (01) | DRG 907 ==
LOC: ER 18:35 → EDBEDREQ 22:29 → 7WST 10-02 00:38
PROVIDERS: ADMIT Internal Medicine Nephrology; ATTEND Internal Medicine Nephrology
PROC: 5A1D70Z Performance of Urinary Filtration, Intermittent, Less than 6 Hours Per Day (ICD-10-PCS; 2022-10-02)
PROC: 0FPB30Z Removal of Drainage Device from Hepatobiliary Duct, Percutaneous Approach (ICD-10-PCS; principal; 2022-10-04)
PROC: 0FH Hepatobiliary System and Pancreas, Insertion (ICD-10-PCS; 2022-10-04)
PROC: 5A1D70Z Performance of Urinary Filtration, Intermittent, Less than 6 Hours Per Day (ICD-10-PCS; 2022-10-05)
DX: T85.838A Hemorrhage due to other internal prosthetic devices, implants and grafts, initial encounter (principal); A41.9 Sepsis, unspecified organism; G92.8 Other toxic encephalopathy; K83.1 Obstruction of bile duct; N18.6 End stage renal disease; N17.0 Acute kidney failure with tubular necrosis; J18.9 Pneumonia, unspecified organism; E87.1 Hypo-osmolality and hyponatremia; I12.0 Hypertensive chronic kidney disease with stage 5 chronic kidney disease or end stage renal disease; I82.402 Acute embolism and thrombosis of unspecified deep veins of left lower extremity; C25.9 Malignant neoplasm of pancreas, unspecified; E44.0 Moderate protein-calorie malnutrition; J47.0 Bronchiectasis with acute lower respiratory infection; E87.20 Acidosis, unspecified; Z68.1 Body mass index [BMI] 19.9 or less, adult; E11.22 Type 2 diabetes mellitus with diabetic chronic kidney disease; F03.90 Unspecified dementia, unspecified severity, without behavioral disturbance, psychotic disturbance, mood disturbance, and anxiety; N40.0 Benign prostatic hyperplasia without lower urinary tract symptoms; Z20.822 Contact with and (suspected) exposure to COVID-19; D50.9 Iron deficiency anemia, unspecified; E88.09 Other disorders of plasma-protein metabolism, not elsewhere classified; E66.9 Obesity, unspecified; E78.5 Hyperlipidemia, unspecified; G47.33 Obstructive sleep apnea (adult) (pediatric); I49.3 Ventricular premature depolarization; Z93.1 Gastrostomy status; Z90.49 Acquired absence of other specified parts of digestive tract; Z79.4 Long term (current) use of insulin; Z85.07 Personal history of malignant neoplasm of pancreas; Z86.718 Personal history of other venous thrombosis and embolism; Z86.73 Personal history of transient ischemic attack (TIA), and cerebral infarction without residual deficits; Z66 Do not resuscitate; Z78.1 Physical restraint status; Z99.2 Dependence on renal dialysis; Z79.01 Long term (current) use of anticoagulants; Y84.8 Other medical procedures as the cause of abnormal reaction of the patient, or of later complication, without mention of misadventure at the time of the procedure; Y92.89 Other specified places as the place of occurrence of the external cause; Y73.1 Therapeutic (nonsurgical) and rehabilitative gastroenterology and urology devices associated with adverse incidents; Y92.9 Unspecified place or not applicable
CPT/HCPCS: 36415; 47536; 71045; 71250; 74176; 80048; 80053; 80202; 82962; 84145; 84481; 85025; 86705; 86709; 86803; 86850; 86900; 87340; 87426; 90935; 93005; 99285; C1725; C1729; C1760; C1769; C1893; J0330; J0692; J1100; J1815; J2060; J2270; J2405; J2543; J2704; J3010; J3370; J3490; J7042; J7060; Q9967